=== PATIENT | female | born 1980 | race Caucasian/White ===

== ENCOUNTER 2017-11-28 10:06 | Outpatient (REF) | payer MEDICAID, SELFPAY ==
[2017-11-28 21:19] LABS: ALT 22 U/L (12-78); AST 18 U/L (15-37); Albumin 3.8 g/dL (3.4-5.0); Alkaline Phosphatase 56 U/L (46-116); BUN 13 mg/dL (7-18); Bilirubin, Total 0.2 mg/dL (0.2-1.0); CREATININE 0.73 mg/dL (0.55-1.02); Calcium 8.5 mg/dL (8.5-10.1); Chloride 106 mmol/L (98-107); Cholesterol 142 mg/dL (50-200); Glucose 93 mg/dL (70-100); HDL Cholesterol 39 mg/dL (40-60); LDL CHOLESTEROL 94 mg/dL (<100); Potassium 4.5 mmol/L (3.5-5.1); Sodium 141 mmol/L (136-145); Total Protein 7.1 g/dL (6.4-8.2); Triglyceride 57 mg/dL (30-150)
== END 2017-11-28 10:07 ==
LOC: NCHCN 10:06
PROVIDERS: PCP Family Medicine; Visit Provider Family Medicine
DX: E66.3 Overweight (principal); Z00.00 Encounter for general adult medical examination without abnormal findings
CPT/HCPCS: 80053; 80061; 83721

== ENCOUNTER 2017-12-09 18:11 | Outpatient (REF) | payer MEDICAID, SELFPAY ==
--- NOTE | 2017-12-09 16:30 | PAPFT_PTH ---
PATIENT: Mckenzie Ryan LOC: [facility] U#:[id number] AGE/SX: 37/F ROOM: RE12/09/[address]: Andi Mcdonnell : 1980 BED: DIS: 12/09/2017 SPEC #: [id number] RECD: 12/10/17 12:27 STATUS: JESSY GUAJARDO #: [id number] JONY: 12/09/17 16:[address]: Andi Mcdonnell DEPT: [facility] Cytology RECD BY: Herminia Zambrano Tissues: 1 - CX/ENDOCX FOR PAP SMEARS Procedures: PAP THIN PREP/[facility] Screening HPV DNA PROBE Comments: [id number]
== END 2017-12-09 18:31 ==
LOC: NCHCN 18:11
PROVIDERS: PCP Family Medicine; Visit Provider Family Medicine
DX: Z12.4 Encounter for screening for malignant neoplasm of cervix (principal); Z11.51 Encounter for screening for human papillomavirus (HPV)
CPT/HCPCS: 88142; 87624

== ENCOUNTER 2019-02-26 22:22 | Outpatient (REF) | payer BC, SELFPAY ==
[2019-02-26 21:08] LABS: Abs Immature Grans 0.01 k/cumm (0.0-0.09); Absolute Basophil Count 0.05 k/cumm (0.0-0.2); Absolute Eosinophil Count 0.09 k/cumm (0.0-0.7); Absolute Lymphocyte Count 2.26 k/cumm (1.2-3.4); Absolute Monocyte Count 0.55 k/cumm (0.11-0.7); Absolute Neutrophil Count 4.23 k/cumm (1.2-6.7); Basophils % 0.7; Eosinophils % 1.3; HCT 45.8 % (36.0-46.0); HGB 15.8 g/dL (12.0-15.5); Immature Grans % 0.1; Lymphocytes % 31.4; Mean Corp. HGB Concentration 34.5 g/dL (32.0-36.0); Mean Corpuscular Hemoglobin 31.2 pg (27.0-33.0); Mean Corpuscular Volume 90.3 fL (80-95); Mean Platelet Volume 10.3 fL (8.0-11.0); Monocytes % 7.6; Neutrophils % 58.9; Platelet Count 271 x1000/uL (130-400); RBC 5.07 m/cumm (4.00-5.20); RBC Distribution Width 12.8 % (11.7-14.6); White Blood Cell Count 7.19 k/cumm (4.4-10.8)
[2019-02-26 21:24] LABS: ALT 28 U/L (14-59); AST 14 U/L (15-37); Albumin 4.3 g/dL (3.4-5.0); Alkaline Phosphatase 46 U/L (46-116); Anion Gap 9.3 mmol/L (3-11); BUN 13 mg/dL (7-18); Bilirubin, Total 0.4 mg/dL (0.2-1.0); C-Reactive Protein 0.24 mg/dL (0.0-0.3); CO2 26.7 mmol/L (21.0-32.0); CREATININE 0.67 mg/dL (0.55-1.02); Calcium 9.1 mg/dL (8.5-10.1); Chloride 102 mmol/L (98-107); Glucose 81 mg/dL (74-106); Potassium 4.5 mmol/L (3.5-5.1); Sodium 138 mmol/L (136-145); TSH (W/Ref FT4) 1.05 uIU/mL (0.36-3.74); Total Protein 7.3 g/dL (6.4-8.2)
[2019-02-26 21:55] LABS: ESR 6 mm/hr (0-20)
== END 2019-02-26 22:42 ==
LOC: NCHCN 22:22
PROVIDERS: PCP Family Medicine; Visit Provider Family Medicine
DX: R63.4 Abnormal weight loss (principal)
CPT/HCPCS: 80053; 85652; 84443; 85025; 86140

== ENCOUNTER 2019-03-02 07:56 | Outpatient (REF) | payer BC, SELFPAY | END 2019-03-02 08:16 | LOC: NCHCN 07:56 | PROVIDERS: PCP Family Medicine; Visit Provider Family Medicine | DX: R63.4 Abnormal weight loss (principal) | CPT/HCPCS: 82272 ==

== ENCOUNTER 2019-03-19 09:00 | Outpatient (REF) | payer BC, SELFPAY ==
[2019-03-22 15:28] LABS: IgA 143 mg/dL (85-499); Tissue Transglutaminase IgA <1.2 U/mL (<4.0)
== END 2019-03-19 09:20 ==
LOC: NCHCN 09:00
PROVIDERS: PCP Family Medicine; Visit Provider Family Medicine
DX: R19.7 Diarrhea, unspecified (principal); R63.4 Abnormal weight loss; R11.2 Nausea with vomiting, unspecified
CPT/HCPCS: 82784; 83516

== ENCOUNTER 2019-05-18 16:24 | Outpatient (REF) | payer BC, SELFPAY ==
--- NOTE | 2019-05-18 14:52 | PAPFT_PTH ---
PATIENT: Mckenzie Ryan LOC: [facility] U#:[id number] AGE/SX: 38/F ROOM: RE05/18/[address]: Andi Mcdonnell : 1980 BED: DIS: 05/18/2019 SPEC #: [id number] RECD: 05/19/19 12:51 STATUS: JESSY REMaximino #: [id number] JONY: 05/18/19 14:[address]: Andi Mcdonnell DEPT: [facility] Cytology RECD BY: Herminia Zambrano Tissues: 1 - CX/ENDOCX FOR PAP SMEARS Procedures: PAP THIN PREP/[facility] Screening HPV DNA PROBE Comments: [id number]
== END 2019-05-18 16:44 ==
LOC: NCHCN 16:24
PROVIDERS: PCP Family Medicine; Visit Provider Family Medicine
DX: Z12.4 Encounter for screening for malignant neoplasm of cervix (principal); Z11.51 Encounter for screening for human papillomavirus (HPV)
CPT/HCPCS: 88142; 87624

== ENCOUNTER 2019-06-04 22:00 | Outpatient (REF) | payer BC, SELFPAY ==
[2019-08-06 09:43] LABS: Specimen Description Sputum
== END 2019-06-04 22:20 ==
LOC: LBN 22:00
PROVIDERS: PCP Family Medicine; Visit Provider Internal Medicine Pulmonary Disease
DX: R05 Cough (principal)
CPT/HCPCS: 87116; 87206; 87070; 87205

== ENCOUNTER 2019-08-03 00:38 | Outpatient (REF) | payer BC, SELFPAY ==
[2019-08-05 13:37] LABS: Chlamydia Result Negative (Negative); GC Result Negative (Negative)
== END 2019-08-03 00:58 ==
LOC: NCHCN 00:38
PROVIDERS: PCP Family Medicine; Visit Provider Nurse Practitioner Family
DX: R10.30 Lower abdominal pain, unspecified (principal); Z11.3 Encounter for screening for infections with a predominantly sexual mode of transmission
CPT/HCPCS: 87491; 87591

== ENCOUNTER 2020-05-22 18:36 | Outpatient (REF) | payer BC, SELFPAY ==
[2020-05-22 13:46] LABS: Abs Immature Grans 0.02 10^3/uL (0.0-0.06); Absolute Basophil Count 0.08 10^3/uL (0.0-0.2); Absolute Eosinophil Count 0.22 10^3/uL (0.0-0.7); Absolute Lymphocyte Count 2.31 10^3/uL (1.2-3.4); Absolute Monocyte Count 0.48 10^3/uL (0.1-0.8); Absolute Neutrophil Count 3.97 10^3/uL (1.2-6.7); Basophils % 1.1; Eosinophils % 3.1; HCT 43.8 % (36.0-46.0); HGB 15.2 g/dL (11.2-15.7); Immature Grans % 0.3; Lymphocytes % 32.6; MCH 31.9 pg (27.0-33.0); MCHC 34.7 % (32.0-36.0); MCV 91.8 fL (80-95); MPV 10.7 fL (8.0-11.0); Monocytes % 6.8; Neutrophils % 56.1; Nucleated RBC 0 %; Platelet Count 102 10^3/uL (130-400); RBC 4.77 10^6/uL (3.93-5.22); RDW 11.6 % (11.7-14.6); RDW-SD 39.4 fL; WBC 7.08 10^3/uL (4.4-10.8)
== END 2020-05-22 18:37 | disposition home or self-care (01) ==
LOC: NCHCN 18:36
PROVIDERS: PCP Family Medicine; Visit Provider Nurse Practitioner Community Health
DX: R10.9 Unspecified abdominal pain (principal)
CPT/HCPCS: 85025

== ENCOUNTER 2020-06-13 16:22 | Outpatient (REF) | payer BC, SELFPAY ==
[2020-06-13 15:19] LABS: Abs Immature Grans 0.01 10^3/uL (0.0-0.06); Absolute Basophil Count 0.08 10^3/uL (0.0-0.2); Absolute Eosinophil Count 0.24 10^3/uL (0.0-0.7); Absolute Lymphocyte Count 2.35 10^3/uL (1.2-3.4); Absolute Neutrophil Count 3.92 10^3/uL (1.2-6.7); Basophils % 1.1; Eosinophils % 3.4; HCT 43.8 % (36.0-46.0); Immature Grans % 0.1; Lymphocytes % 33.1; MCH 31.3 pg (27.0-33.0); MCHC 34.2 % (32.0-36.0); MCV 91.4 fL (80-95); MPV 11.2 fL (8.0-11.0); Neutrophils % 55.3; Nucleated RBC 0 %; Platelet Count 134 10^3/uL (130-400); RBC 4.79 10^6/uL (3.93-5.22); RDW 11.7 % (11.7-14.6); RDW-SD 39.7 fL
[2020-06-13 16:16] LABS: Folate 9.7 ng/mL (8.6-20.0); Vitamin B12 290 pg/mL (193-986)
== END 2020-06-13 16:23 | disposition home or self-care (01) ==
LOC: NCHCN 16:22
PROVIDERS: PCP Family Medicine; Visit Provider Family Medicine
DX: D69.6 Thrombocytopenia, unspecified (principal)
CPT/HCPCS: 82607; 82746; 85025

== ENCOUNTER 2020-07-18 17:45 | Outpatient (REF) | payer BC, SELFPAY ==
[2020-07-18 13:02] LABS: Abs Immature Grans 0.01 10^3/uL (0.0-0.06); Absolute Basophil Count 0.06 10^3/uL (0.0-0.2); Absolute Monocyte Count 0.39 10^3/uL (0.1-0.8); Absolute Neutrophil Count 4.02 10^3/uL (1.2-6.7); Basophils % 0.9; Eosinophils % 2.9; HCT 41.4 % (36.0-46.0); HGB 14.1 g/dL (11.2-15.7); Immature Grans % 0.1; MCH 30.9 pg (27.0-33.0); MCHC 34.1 % (32.0-36.0); MCV 90.8 fL (80-95); MPV 11.1 fL (8.0-11.0); Monocytes % 5.8; Neutrophils % 59.3; Nucleated RBC 0 %; RBC 4.56 10^6/uL (3.93-5.22); RDW 11.2 % (11.7-14.6); RDW-SD 37.8 fL; WBC 6.78 10^3/uL (4.4-10.8)
[2020-07-18 13:27] LABS: Diff Comment Diff Reviewed; Platelet Count 71 10^3/uL (130-400); RBC Morphology Normal
== END 2020-07-18 17:46 | disposition home or self-care (01) ==
LOC: NCHCN 17:45
PROVIDERS: PCP Family Medicine; Visit Provider Family Medicine
DX: D69.6 Thrombocytopenia, unspecified (principal)
CPT/HCPCS: 85025

== ENCOUNTER 2020-07-19 17:39 | Outpatient (REF) | payer BC, SELFPAY ==
[2020-07-19 21:51] LABS: Abs Immature Grans 0.02 10^3/uL (0.0-0.06); Absolute Basophil Count 0.08 10^3/uL (0.0-0.2); Absolute Eosinophil Count 0.29 10^3/uL (0.0-0.7); Absolute Lymphocyte Count 3.27 10^3/uL (1.2-3.4); Absolute Monocyte Count 0.59 10^3/uL (0.1-0.8); Absolute Neutrophil Count 6.49 10^3/uL (1.2-6.7); Basophils % 0.7; Eosinophils % 2.7; HCT 40.8 % (36.0-46.0); HGB 14.3 g/dL (11.2-15.7); Immature Grans % 0.2; Lymphocytes % 30.4; MCH 31.1 pg (27.0-33.0); MCV 88.7 fL (80-95); MPV 11.3 fL (8.0-11.0); Monocytes % 5.5; Neutrophils % 60.5; Nucleated RBC 0 %; RDW 11.4 % (11.7-14.6); RDW-SD 36.3 fL; WBC 10.74 10^3/uL (4.4-10.8)
[2020-07-19 22:30] LABS: Platelet Count 82 10^3/uL (130-400)
== END 2020-07-19 17:40 | disposition home or self-care (01) ==
LOC: NCHCN 17:39
PROVIDERS: PCP Family Medicine; Visit Provider Nurse Practitioner Family
DX: D69.6 Thrombocytopenia, unspecified (principal)
CPT/HCPCS: 85025

== ENCOUNTER 2020-07-21 17:30 | Outpatient (REF) | payer BC, SELFPAY ==
[2020-07-21 21:55] LABS: ALT 29 U/L (14-59); AST 15 U/L (15-37); Albumin 4.3 g/dL (3.4-5.0); Alkaline Phosphatase 48 U/L (46-116); Anion Gap 9.2 mmol/L (3-11); BUN 11 mg/dL (7-18); Bilirubin, Total 0.2 mg/dL (0.2-1.0); CO2 27.8 mmol/L (21.0-32.0); CREATININE 0.9 mg/dL (0.55-1.02); Calcium 9.2 mg/dL (8.5-10.1); Chloride 104 mmol/L (98-107); Glucose 119 mg/dL (74-106); Potassium 3.9 mmol/L (3.5-5.1); Sodium 141 mmol/L (136-145); Total Protein 7.4 g/dL (6.4-8.2)
[2020-07-23 18:08] LABS: Fibrinogen 305 mg/dl (171-384)
[2020-07-24 10:54] LABS: Hepatitis C Ab w Rflx HCV PCR Negative (Negative)
[2020-07-24 11:05] LABS: HIV-1/2 Ag & Ab Screen Negative (Negative)
== END 2020-07-21 17:31 | disposition home or self-care (01) ==
LOC: NCHCN 17:30
PROVIDERS: PCP Family Medicine; Visit Provider Nurse Practitioner Family
DX: D69.6 Thrombocytopenia, unspecified (principal); Z11.4 Encounter for screening for human immunodeficiency virus [HIV]; Z11.59 Encounter for screening for other viral diseases
CPT/HCPCS: 80053; 85384; 86803; 87389; 85730

== ENCOUNTER 2020-08-02 22:54 | Outpatient (REF) | payer BC, SELFPAY ==
[2020-08-02 22:20] LABS: HCT 39.9 % (36.0-46.0); HGB 13.7 g/dL (11.2-15.7); MCHC 34.3 % (32.0-36.0); MCV 90.3 fL (80-95); MPV 11.1 fL (8.0-11.0); Platelet Count 109 10^3/uL (130-400); RBC 4.42 10^6/uL (3.93-5.22); RDW 11.1 % (11.7-14.6); RDW-SD 37.1 fL; WBC 9.12 10^3/uL (4.4-10.8)
[2020-08-04 14:01] LABS: COVID-19 RT-PCR UVMMC Result Negative (Negative)
== END 2020-08-02 22:55 | disposition home or self-care (01) ==
LOC: NCHCN 22:54
PROVIDERS: PCP Family Medicine; Visit Provider Family Medicine
DX: D69.6 Thrombocytopenia, unspecified (principal); Z20.822 Contact with and (suspected) exposure to COVID-19
CPT/HCPCS: 85027; U0003

== ENCOUNTER 2020-08-29 16:32 | Outpatient (REF) | payer BC, SELFPAY ==
[2020-08-29 15:24] LABS: HCT 39.6 % (36.0-46.0); HGB 13.9 g/dL (11.2-15.7); MCHC 35.1 % (32.0-36.0); MCV 88.2 fL (80-95); Platelet Count 82 10^3/uL (130-400); RBC 4.49 10^6/uL (3.93-5.22); RDW 11.8 % (11.7-14.6); WBC 6.66 10^3/uL (4.4-10.8)
== END 2020-08-29 16:33 | disposition home or self-care (01) ==
LOC: LBN 16:32
PROVIDERS: PCP Family Medicine; Visit Provider Internal Medicine Hematology
DX: D69.6 Thrombocytopenia, unspecified (principal)
CPT/HCPCS: 85027

== ENCOUNTER 2020-09-14 09:28 | Outpatient (REF) | payer BC, SELFPAY ==
[2020-09-14 13:38] LABS: HCT 40.7 % (36.0-46.0); HGB 13.7 g/dL (11.2-15.7); MCHC 33.7 % (32.0-36.0); MCV 89.1 fL (80-95); MPV 10.6 fL (8.0-11.0); RBC 4.57 10^6/uL (3.93-5.22); RDW 11.9 % (11.7-14.6); RDW-SD 38.6 fL; WBC 7.88 10^3/uL (4.4-10.8)
[2020-09-14 13:40] LABS: Platelet Count 67 10^3/uL (130-400)
== END 2020-09-14 09:29 | disposition home or self-care (01) ==
LOC: NCHCN 09:28
PROVIDERS: PCP Family Medicine; Visit Provider Family Medicine
DX: D69.6 Thrombocytopenia, unspecified (principal)
CPT/HCPCS: 85027

== ENCOUNTER 2020-11-14 15:17 | Outpatient (REF) | payer BC, SELFPAY ==
[2020-11-14 20:38] LABS: Abs Immature Grans 0.02 10^3/uL (0.0-0.06); HGB 14.3 g/dL (11.2-15.7); Immature Grans % 0.2; Nucleated RBC 0 %; RDW-SD 39.6 fL
[2020-11-14 20:39] LABS: Absolute Basophil Count 0.05 10^3/uL (0.0-0.2); Absolute Eosinophil Count 0.15 10^3/uL (0.0-0.7); Absolute Lymphocyte Count 2.61 10^3/uL (1.2-3.4); Absolute Monocyte Count 0.46 10^3/uL (0.1-0.8); Basophils % 0.6; Eosinophils % 1.8; HCT 41.8 % (36.0-46.0); Lymphocytes % 32.2; MCH 31.2 pg (27.0-33.0); MCHC 34.2 % (32.0-36.0); MCV 91.1 fL (80-95); MPV 11.4 fL (8.0-11.0); Monocytes % 5.7; Neutrophils % 59.5; RBC 4.59 10^6/uL (3.93-5.22); RDW 11.8 % (11.7-14.6); WBC 8.11 10^3/uL (4.4-10.8)
[2020-11-14 20:57] LABS: Absolute Neutrophil Count 4.83 10^3/uL (1.2-6.7)
[2020-11-14 21:02] LABS: ALT 27 U/L (14-59); AST 18 U/L (15-37); Alkaline Phosphatase 42 U/L (46-116); Anion Gap 9.1 mmol/L (3-11); BUN 12 mg/dL (7-18); Bilirubin, Total 0.3 mg/dL (0.2-1.0); CO2 24.9 mmol/L (21.0-32.0); CREATININE 0.6 mg/dL (0.55-1.02); Calcium 9.1 mg/dL (8.5-10.1); Chloride 105 mmol/L (98-107); Glucose 100 mg/dL (74-106); Lipase 60 U/L (73-393); Potassium 3.8 mmol/L (3.5-5.1); Sodium 139 mmol/L (136-145); TSH (W/Ref FT4) 1.08 uIU/mL (0.36-3.74); Total Protein 6.9 g/dL (6.4-8.2)
[2020-11-14 21:59] LABS: Diff Comment PLT Morph Reviewed; Platelet Count 76 10^3/uL (130-400); RBC Morphology Normal
[2020-11-16 12:32] LABS: COVID-19 RT-PCR UVMMC Result Negative (Negative)
== END 2020-11-14 15:18 | disposition home or self-care (01) ==
LOC: NCHCN 15:17
PROVIDERS: PCP Family Medicine; Visit Provider Nurse Practitioner Family
DX: R19.7 Diarrhea, unspecified (principal); R11.0 Nausea; J06.9 Acute upper respiratory infection, unspecified; Z20.822 Contact with and (suspected) exposure to COVID-19
CPT/HCPCS: 80053; 83690; U0003; 84443; 85025

== ENCOUNTER 2020-12-21 17:39 | Outpatient (REF) | payer BC, SELFPAY ==
[2020-12-21 20:42] LABS: Abs Immature Grans 0.02 10^3/uL (0.0-0.06); Absolute Basophil Count 0.08 10^3/uL (0.0-0.2); Absolute Eosinophil Count 0.11 10^3/uL (0.0-0.7); Absolute Lymphocyte Count 2.83 10^3/uL (1.2-3.4); Absolute Monocyte Count 0.51 10^3/uL (0.1-0.8); Eosinophils % 1.3; HCT 43.4 % (36.0-46.0); HGB 14.8 g/dL (11.2-15.7); Immature Grans % 0.2; Lymphocytes % 34.3; MCH 30.6 pg (27.0-33.0); MCHC 34.1 % (32.0-36.0); MCV 89.9 fL (80-95); MPV 11.8 fL (8.0-11.0); Monocytes % 6.2; Nucleated RBC 0 %; Platelet Count 51 10^3/uL (130-400); RBC 4.83 10^6/uL (3.93-5.22); RDW 11.5 % (11.7-14.6); RDW-SD 37.4 fL; WBC 8.25 10^3/uL (4.4-10.8)
[2020-12-21 20:54] LABS: ALT 26 U/L (14-59); AST 17 U/L (15-37); Albumin 4.4 g/dL (3.4-5.0); Alkaline Phosphatase 45 U/L (46-116); Anion Gap 9.2 mmol/L (3-11); BUN 9 mg/dL (7-18); Bilirubin, Total 0.3 mg/dL (0.2-1.0); CO2 25.8 mmol/L (21.0-32.0); CREATININE 0.8 mg/dL (0.55-1.02); Calcium 9.3 mg/dL (8.5-10.1); Chloride 105 mmol/L (98-107); Glucose 83 mg/dL (74-106); Lipase 55 U/L (73-393); Potassium 3.8 mmol/L (3.5-5.1); Sodium 140 mmol/L (136-145); Total Protein 7.4 g/dL (6.4-8.2)
[2020-12-23 21:33] LABS: COVID-19 RT-PCR UVMMC Result Negative (Negative)
== END 2020-12-21 17:40 | disposition home or self-care (01) ==
LOC: NCHCN 17:39
PROVIDERS: PCP Family Medicine; Visit Provider Nurse Practitioner Family
DX: R10.30 Lower abdominal pain, unspecified (principal); Z20.822 Contact with and (suspected) exposure to COVID-19; J06.9 Acute upper respiratory infection, unspecified
CPT/HCPCS: 80053; 83690; U0003; 85025

== ENCOUNTER 2020-12-26 15:36 | Outpatient (REF) | payer BC, SELFPAY ==
[2020-12-26 21:45] LABS: HCT 43.6 % (36.0-46.0); MCH 31.1 pg (27.0-33.0); MCHC 34.4 % (32.0-36.0); MCV 90.3 fL (80-95); MPV 11.8 fL (8.0-11.0); Platelet Count 48 10^3/uL (130-400); RBC 4.83 10^6/uL (3.93-5.22); RDW 11.4 % (11.7-14.6); WBC 8.83 10^3/uL (4.4-10.8)
== END 2020-12-26 15:37 | disposition home or self-care (01) ==
LOC: NCHCN 15:36
PROVIDERS: PCP Family Medicine; Visit Provider Family Medicine
DX: D69.6 Thrombocytopenia, unspecified (principal)
CPT/HCPCS: 85027

== ENCOUNTER 2021-01-05 07:36 | Outpatient (REF) | payer BC, SELFPAY ==
[2021-01-04 21:02] LABS: Abs Immature Grans 0.06 10^3/uL (0.0-0.06); Absolute Basophil Count 0.03 10^3/uL (0.0-0.2); Basophils % 0.2; HCT 47.2 % (36.0-46.0); Immature Grans % 0.4; Lymphocytes % 10.8; MCH 31.1 pg (27.0-33.0); MCHC 33.9 % (32.0-36.0); MCV 91.7 fL (80-95); Monocytes % 0.8; Neutrophils % 87.8; Nucleated RBC 0 %; Platelet Count 286 10^3/uL (130-400); RBC 5.15 10^6/uL (3.93-5.22); RDW-SD 41.2 fL; WBC 15.62 10^3/uL (4.4-10.8)
[2021-01-04 21:18] LABS: Absolute Lymphocyte Count 1.69 10^3/uL (1.2-3.4); Absolute Monocyte Count 0.12 10^3/uL (0.1-0.8); Absolute Neutrophil Count 13.71 10^3/uL (1.2-6.7)
[2021-01-05 19:20] LABS: COVID-19 RT-PCR UVMMC Result Negative (Negative)
== END 2021-01-05 07:37 | disposition home or self-care (01) ==
LOC: NCHCN 07:36
PROVIDERS: Registered Nurse; PCP Family Medicine; Visit Provider Internal Medicine Hematology
DX: D69.6 Thrombocytopenia, unspecified (principal); Z20.822 Contact with and (suspected) exposure to COVID-19; J06.9 Acute upper respiratory infection, unspecified
CPT/HCPCS: U0003; 85025

== ENCOUNTER 2021-01-19 13:38 | Outpatient (REF) | payer BC, SELFPAY ==
[2021-01-19 14:10] LABS: Abs Immature Grans 0.11 10^3/uL (0.0-0.06); Absolute Basophil Count 0.08 10^3/uL (0.0-0.2); Absolute Eosinophil Count 0.17 10^3/uL (0.0-0.7); Absolute Lymphocyte Count 3.97 10^3/uL (1.2-3.4); Basophils % 0.5; HGB 14.9 g/dL (11.2-15.7); Immature Grans % 0.7; Lymphocytes % 23.7; MCH 31.7 pg (27.0-33.0); MCHC 33.9 % (32.0-36.0); MCV 93.6 fL (80-95); MPV 9.9 fL (8.0-11.0); Neutrophils % 69.1; Nucleated RBC 0 %; Platelet Count 168 10^3/uL (130-400); RDW 12.9 % (11.7-14.6); RDW-SD 44.4 fL; WBC 16.76 10^3/uL (4.4-10.8)
[2021-01-19 14:12] LABS: Absolute Monocyte Count 0.84 10^3/uL (0.1-0.8); Absolute Neutrophil Count 11.58 10^3/uL (1.2-6.7)
== END 2021-01-19 13:39 | disposition home or self-care (01) ==
LOC: LBN 13:38
PROVIDERS: PCP Family Medicine; Visit Provider Internal Medicine Hematology
DX: D69.6 Thrombocytopenia, unspecified (principal)
CPT/HCPCS: 85025

== ENCOUNTER 2021-01-29 16:18 | Outpatient (REF) | payer BC, SELFPAY ==
[2021-01-31 14:27] LABS: COVID-19 RT-PCR UVMMC Result Negative (Negative)
== END 2021-01-29 16:19 | disposition home or self-care (01) ==
LOC: NCHCN 16:18
PROVIDERS: PCP Family Medicine; Visit Provider Nurse Practitioner Family
DX: Z20.822 Contact with and (suspected) exposure to COVID-19 (principal); J06.9 Acute upper respiratory infection, unspecified
CPT/HCPCS: U0003

== ENCOUNTER 2021-02-02 14:21 | Outpatient (REF) | payer BC, SELFPAY ==
[2021-02-02 15:04] LABS: Absolute Basophil Count 0.05 10^3/uL (0.0-0.2); Absolute Lymphocyte Count 2.76 10^3/uL (1.2-3.4); Absolute Monocyte Count 0.72 10^3/uL (0.1-0.8); Absolute Neutrophil Count 12.53 10^3/uL (1.2-6.7); Basophils % 0.3; Eosinophils % 0.6; HCT 47.1 % (36.0-46.0); HGB 15.5 g/dL (11.2-15.7); Immature Grans % 0.6; MCH 31.1 pg (27.0-33.0); MCHC 32.9 % (32.0-36.0); MCV 94.6 fL (80-95); Monocytes % 4.4; Neutrophils % 77.1; Nucleated RBC 0 %; Platelet Count 178 10^3/uL (130-400); RBC 4.98 10^6/uL (3.93-5.22); RDW 13.6 % (11.7-14.6); RDW-SD 47.9 fL; WBC 16.25 10^3/uL (4.4-10.8)
== END 2021-02-02 14:22 | disposition home or self-care (01) ==
LOC: LBN 14:21
PROVIDERS: PCP Family Medicine; Visit Provider Internal Medicine Hematology
DX: D69.3 Immune thrombocytopenic purpura (principal)
CPT/HCPCS: 85025

== ENCOUNTER 2021-02-09 14:58 | Outpatient (REF) | payer BC, SELFPAY ==
[2021-02-09 17:36] LABS: Abs Immature Grans 0.14 10^3/uL (0.0-0.06); Absolute Eosinophil Count 0.09 10^3/uL (0.0-0.7); Absolute Lymphocyte Count 2.23 10^3/uL (1.2-3.4); Basophils % 0.4; Eosinophils % 0.5; HCT 47.3 % (36.0-46.0); HGB 15.7 g/dL (11.2-15.7); Immature Grans % 0.8; Lymphocytes % 13.1; MCH 31.7 pg (27.0-33.0); MCHC 33.2 % (32.0-36.0); MCV 95.4 fL (80-95); MPV 10.3 fL (8.0-11.0); Monocytes % 3.5; Neutrophils % 81.7; Nucleated RBC 0 %; Platelet Count 163 10^3/uL (130-400); RBC 4.96 10^6/uL (3.93-5.22); RDW 13.6 % (11.7-14.6); RDW-SD 47.8 fL; WBC 17.01 10^3/uL (4.4-10.8)
[2021-02-09 17:38] LABS: Absolute Basophil Count 0.07 10^3/uL (0.0-0.2)
== END 2021-02-09 14:59 | disposition home or self-care (01) ==
LOC: LBN 14:58
PROVIDERS: PCP Family Medicine; Visit Provider Internal Medicine Hematology
DX: D69.6 Thrombocytopenia, unspecified (principal)
CPT/HCPCS: 85025

== ENCOUNTER 2021-02-16 13:58 | Outpatient (REF) | payer BC, SELFPAY ==
[2021-02-16 20:24] LABS: Abs Immature Grans 0.12 10^3/uL (0.0-0.06); Absolute Basophil Count 0.08 10^3/uL (0.0-0.2); Absolute Eosinophil Count 0.08 10^3/uL (0.0-0.7); Basophils % 0.4; Eosinophils % 0.4; HCT 47.6 % (36.0-46.0); HGB 15.6 g/dL (11.2-15.7); Immature Grans % 0.6; Lymphocytes % 13.7; MCH 31.5 pg (27.0-33.0); MCHC 32.8 % (32.0-36.0); MPV 10.7 fL (8.0-11.0); Monocytes % 4.1; Neutrophils % 80.8; Nucleated RBC 0 %; Platelet Count 144 10^3/uL (130-400); RBC 4.96 10^6/uL (3.93-5.22); RDW 13.2 % (11.7-14.6); RDW-SD 47.3 fL; WBC 19.11 10^3/uL (4.4-10.8)
[2021-02-16 20:26] LABS: Absolute Lymphocyte Count 2.62 10^3/uL (1.2-3.4); Absolute Monocyte Count 0.78 10^3/uL (0.1-0.8); Absolute Neutrophil Count 15.44 10^3/uL (1.2-6.7)
== END 2021-02-16 13:59 | disposition home or self-care (01) ==
LOC: LBN 13:58
PROVIDERS: PCP Family Medicine; Visit Provider Internal Medicine Hematology
DX: D69.6 Thrombocytopenia, unspecified (principal)
CPT/HCPCS: 85025

== ENCOUNTER 2021-02-23 13:50 | Outpatient (REF) | payer BC, SELFPAY ==
[2021-02-23 21:26] LABS: Abs Immature Grans 0.11 10^3/uL (0.0-0.06); Absolute Eosinophil Count 0.05 10^3/uL (0.0-0.7); Basophils % 0.5; Eosinophils % 0.3; HCT 46.8 % (36.0-46.0); HGB 15.6 g/dL (11.2-15.7); Immature Grans % 0.6; Lymphocytes % 10.4; MCH 31.5 pg (27.0-33.0); MCHC 33.3 % (32.0-36.0); MCV 94.5 fL (80-95); MPV 10.2 fL (8.0-11.0); Monocytes % 2.8; Neutrophils % 85.4; Nucleated RBC 0 %; Platelet Count 124 10^3/uL (130-400); RBC 4.95 10^6/uL (3.93-5.22); RDW 12.8 % (11.7-14.6); RDW-SD 44.9 fL; WBC 17.34 10^3/uL (4.4-10.8)
[2021-02-23 21:27] LABS: Absolute Basophil Count 0.09 10^3/uL (0.0-0.2); Absolute Monocyte Count 0.49 10^3/uL (0.1-0.8); Absolute Neutrophil Count 14.81 10^3/uL (1.2-6.7)
[2021-02-23 21:51] LABS: C-Reactive Protein 0.14 mg/dL (0.0-0.3); TSH 1.17 uIU/mL (0.36-3.74)
[2021-02-26 15:05] LABS: IgA 119 mg/dL (85-499); Interpretation (See Note); Tissue Transglutaminase IgA <1.2 U/mL (<4.0)
== END 2021-02-23 13:51 | disposition home or self-care (01) ==
LOC: LBN 13:50
PROVIDERS: Internal Medicine Gastroenterology; PCP Family Medicine; Visit Provider Internal Medicine Hematology
DX: D69.3 Immune thrombocytopenic purpura (principal); R10.84 Generalized abdominal pain
CPT/HCPCS: 82784; 83516; 84443; 85025; 86140; 86480

== ENCOUNTER 2021-03-02 19:38 | Outpatient (REF) | payer BC, SELFPAY ==
[2021-03-02 20:05] LABS: Abs Immature Grans 0.05 10^3/uL (0.0-0.06); Absolute Basophil Count 0.06 10^3/uL (0.0-0.2); Absolute Eosinophil Count 0.01 10^3/uL (0.0-0.7); Absolute Monocyte Count 0.18 10^3/uL (0.1-0.8); Absolute Neutrophil Count 10.64 10^3/uL (1.2-6.7); Basophils % 0.5; Eosinophils % 0.1; HCT 46.9 % (36.0-46.0); HGB 15.7 g/dL (11.2-15.7); Immature Grans % 0.4; Lymphocytes % 10.6; MCH 31.8 pg (27.0-33.0); MCHC 33.5 % (32.0-36.0); MCV 95.1 fL (80-95); MPV 10.5 fL (8.0-11.0); Monocytes % 1.5; Neutrophils % 86.9; Nucleated RBC 0 %; Platelet Count 156 10^3/uL (130-400); RBC 4.93 10^6/uL (3.93-5.22); RDW 12.5 % (11.7-14.6); RDW-SD 44.3 fL; WBC 12.24 10^3/uL (4.4-10.8)
== END 2021-03-02 19:39 | disposition home or self-care (01) ==
LOC: LBN 19:38
PROVIDERS: PCP Family Medicine; Visit Provider Internal Medicine Hematology
DX: D69.6 Thrombocytopenia, unspecified (principal)
CPT/HCPCS: 85025

== ENCOUNTER 2021-03-09 14:48 | Outpatient (REF) | payer BC, SELFPAY ==
[2021-03-09 21:24] LABS: Abs Immature Grans 0.04 10^3/uL (0.0-0.06); Absolute Basophil Count 0.08 10^3/uL (0.0-0.2); Absolute Eosinophil Count 0.08 10^3/uL (0.0-0.7); Absolute Lymphocyte Count 1.79 10^3/uL (1.2-3.4); Absolute Monocyte Count 0.52 10^3/uL (0.1-0.8); Basophils % 0.7; Eosinophils % 0.7; HCT 47.4 % (36.0-46.0); Immature Grans % 0.3; MCHC 33.8 % (32.0-36.0); MCV 94.8 fL (80-95); MPV 10.8 fL (8.0-11.0); Monocytes % 4.4; Neutrophils % 78.9; Nucleated RBC 0 %; Platelet Count 103 10^3/uL (130-400); RDW 12.4 % (11.7-14.6); RDW-SD 43.6 fL; WBC 11.93 10^3/uL (4.4-10.8)
[2021-03-09 21:25] LABS: Absolute Neutrophil Count 9.41 10^3/uL (1.2-6.7)
== END 2021-03-09 14:49 | disposition home or self-care (01) ==
LOC: LBN 14:48
PROVIDERS: PCP Family Medicine; Visit Provider Internal Medicine Hematology
DX: D69.3 Immune thrombocytopenic purpura (principal)
CPT/HCPCS: 85025

== ENCOUNTER 2021-03-16 15:17 | Outpatient (REF) | payer BC, SELFPAY ==
[2021-03-16 20:48] LABS: Abs Immature Grans 0.05 10^3/uL (0.0-0.06); Absolute Basophil Count 0.08 10^3/uL (0.0-0.2); Absolute Eosinophil Count 0.01 10^3/uL (0.0-0.7); Absolute Lymphocyte Count 1.29 10^3/uL (1.2-3.4); Absolute Monocyte Count 0.34 10^3/uL (0.1-0.8); Absolute Neutrophil Count 11.22 10^3/uL (1.2-6.7); Basophils % 0.6; Eosinophils % 0.1; HCT 46.8 % (36.0-46.0); HGB 15.6 g/dL (11.2-15.7); Immature Grans % 0.4; Lymphocytes % 9.9; MCH 31.4 pg (27.0-33.0); MCHC 33.3 % (32.0-36.0); MCV 94.2 fL (80-95); MPV 11.3 fL (8.0-11.0); Monocytes % 2.6; Neutrophils % 86.4; Nucleated RBC 0 %; RBC 4.97 10^6/uL (3.93-5.22); RDW-SD 41.8 fL; WBC 12.99 10^3/uL (4.4-10.8)
[2021-03-16 22:48] LABS: Platelet Count 54 10^3/uL (130-400)
== END 2021-03-16 15:18 | disposition home or self-care (01) ==
LOC: LBN 15:17
PROVIDERS: PCP Family Medicine; Visit Provider Internal Medicine Hematology
DX: D69.3 Immune thrombocytopenic purpura (principal)
CPT/HCPCS: 85025

== ENCOUNTER 2021-03-19 15:12 | Outpatient (REF) | payer BC, SELFPAY ==
[2021-03-19 22:19] LABS: Abs Immature Grans 0.03 10^3/uL (0.0-0.06); Absolute Basophil Count 0.06 10^3/uL (0.0-0.2); Absolute Eosinophil Count 0.02 10^3/uL (0.0-0.7); Absolute Lymphocyte Count 1.68 10^3/uL (1.2-3.4); Absolute Monocyte Count 0.24 10^3/uL (0.1-0.8); Absolute Neutrophil Count 7.87 10^3/uL (1.2-6.7); Basophils % 0.6; Eosinophils % 0.2; HCT 45.5 % (36.0-46.0); HGB 15.4 g/dL (11.2-15.7); Immature Grans % 0.3; MCH 31.8 pg (27.0-33.0); MCHC 33.8 % (32.0-36.0); MCV 93.8 fL (80-95); Monocytes % 2.4; Neutrophils % 79.5; Nucleated RBC 0 %; Platelet Count 69 10^3/uL (130-400); RBC 4.85 10^6/uL (3.93-5.22); RDW 11.9 % (11.7-14.6); RDW-SD 41.3 fL
== END 2021-03-19 15:13 | disposition home or self-care (01) ==
LOC: LBN 15:12
PROVIDERS: PCP Family Medicine; Visit Provider Internal Medicine Hematology
DX: D69.3 Immune thrombocytopenic purpura (principal)
CPT/HCPCS: 85025

== ENCOUNTER 2021-03-26 13:34 | Outpatient (REF) | payer BC, SELFPAY ==
[2021-03-26 15:19] LABS: Abs Immature Grans 0.04 10^3/uL (0.0-0.06); Absolute Basophil Count 0.07 10^3/uL (0.0-0.2); Absolute Eosinophil Count 0.02 10^3/uL (0.0-0.7); Absolute Lymphocyte Count 1.56 10^3/uL (1.2-3.4); Absolute Monocyte Count 0.28 10^3/uL (0.1-0.8); Absolute Neutrophil Count 9.04 10^3/uL (1.2-6.7); Basophils % 0.6; Eosinophils % 0.2; HCT 46.9 % (36.0-46.0); HGB 15.8 g/dL (11.2-15.7); Immature Grans % 0.4; Lymphocytes % 14.2; MCH 31.8 pg (27.0-33.0); MCHC 33.7 % (32.0-36.0); MCV 94.4 fL (80-95); MPV 11.3 fL (8.0-11.0); Monocytes % 2.5; Neutrophils % 82.1; Nucleated RBC 0 %; Platelet Count 130 10^3/uL (130-400); RBC 4.97 10^6/uL (3.93-5.22); RDW 11.9 % (11.7-14.6); RDW-SD 41.5 fL; WBC 11.01 10^3/uL (4.4-10.8)
== END 2021-03-26 13:35 | disposition home or self-care (01) ==
LOC: LBN 13:34
PROVIDERS: PCP Family Medicine; Visit Provider Internal Medicine Hematology
DX: D69.3 Immune thrombocytopenic purpura (principal)
CPT/HCPCS: 85025

== ENCOUNTER 2021-04-02 15:07 | Outpatient (REF) | payer BC, SELFPAY ==
[2021-04-02 21:06] LABS: Abs Immature Grans 0.06 10^3/uL (0.0-0.06); Absolute Eosinophil Count 0.01 10^3/uL (0.0-0.7); Absolute Monocyte Count 0.14 10^3/uL (0.1-0.8); Absolute Neutrophil Count 11.39 10^3/uL (1.2-6.7); Basophils % 0.5; Eosinophils % 0.1; HCT 45.9 % (36.0-46.0); HGB 15.5 g/dL (11.2-15.7); Immature Grans % 0.5; Lymphocytes % 9.3; MCH 31.8 pg (27.0-33.0); MCHC 33.8 % (32.0-36.0); MCV 94.3 fL (80-95); MPV 10.8 fL (8.0-11.0); Monocytes % 1.1; Neutrophils % 88.5; Nucleated RBC 0 %; Platelet Count 93 10^3/uL (130-400); RBC 4.87 10^6/uL (3.93-5.22); RDW 11.9 % (11.7-14.6); RDW-SD 41.1 fL; WBC 12.87 10^3/uL (4.4-10.8)
[2021-04-02 21:08] LABS: Absolute Basophil Count 0.06 10^3/uL (0.0-0.2)
== END 2021-04-02 15:08 | disposition home or self-care (01) ==
LOC: LBN 15:07
PROVIDERS: PCP Family Medicine; Visit Provider Internal Medicine Hematology
DX: D69.3 Immune thrombocytopenic purpura (principal)
CPT/HCPCS: 85025

== ENCOUNTER 2021-04-10 15:17 | Outpatient (REF) | payer BC, SELFPAY ==
[2021-04-10 16:51] LABS: Abs Immature Grans 0.04 10^3/uL (0.0-0.06); Absolute Basophil Count 0.07 10^3/uL (0.0-0.2); Absolute Eosinophil Count 0.11 10^3/uL (0.0-0.7); Absolute Lymphocyte Count 2.93 10^3/uL (1.2-3.4); Absolute Monocyte Count 0.73 10^3/uL (0.1-0.8); Absolute Neutrophil Count 7.03 10^3/uL (1.2-6.7); Basophils % 0.6; HCT 44.1 % (36.0-46.0); Immature Grans % 0.4; Lymphocytes % 26.9; MCH 32.3 pg (27.0-33.0); MPV 11.3 fL (8.0-11.0); Monocytes % 6.7; Neutrophils % 64.4; Nucleated RBC 0 %; RBC 4.64 10^6/uL (3.93-5.22); RDW 11.9 % (11.7-14.6); RDW-SD 41.9 fL; WBC 10.91 10^3/uL (4.4-10.8)
[2021-04-10 17:07] LABS: Platelet Count 92 10^3/uL (130-400)
== END 2021-04-10 15:18 | disposition home or self-care (01) ==
LOC: LBN 15:17
PROVIDERS: PCP Family Medicine; Visit Provider Internal Medicine
DX: D69.3 Immune thrombocytopenic purpura (principal)
CPT/HCPCS: 85025

== ENCOUNTER 2021-04-17 11:29 | Outpatient (REF) | payer BC, SELFPAY ==
[2021-04-17 15:26] LABS: Lymphocytes % 14.2; Nucleated RBC 0 %; RDW 11.9 % (11.7-14.6)
[2021-04-17 15:28] LABS: Abs Immature Grans 0.06 10^3/uL (0.0-0.06); Absolute Lymphocyte Count 2.15 10^3/uL (1.2-3.4); Absolute Monocyte Count 0.76 10^3/uL (0.1-0.8); Basophils % 0.7; Eosinophils % 1.1; HCT 45.2 % (36.0-46.0); HGB 15.2 g/dL (11.2-15.7); Immature Grans % 0.4; MCHC 33.6 % (32.0-36.0); MCV 95.2 fL (80-95); Neutrophils % 78.6; RBC 4.75 10^6/uL (3.93-5.22)
[2021-04-17 15:49] LABS: Absolute Eosinophil Count 0.17 10^3/uL (0.0-0.7)
[2021-04-17 16:31] LABS: Diff Comment PLT Morph Reviewed; Platelet Count 88 10^3/uL (130-400); RBC Morphology Normal
[2021-04-17 18:54] LABS: WBC 15.13 10^3/uL (4.4-10.8)
== END 2021-04-17 11:30 | disposition home or self-care (01) ==
LOC: LBN 11:29
PROVIDERS: PCP Family Medicine; Visit Provider Internal Medicine
DX: D69.3 Immune thrombocytopenic purpura (principal)
CPT/HCPCS: 85025

== ENCOUNTER 2021-04-24 11:31 | Outpatient (REF) | payer BC, SELFPAY ==
[2021-04-24 16:05] LABS: Abs Immature Grans 0.03 10^3/uL (0.0-0.06); Absolute Basophil Count 0.07 10^3/uL (0.0-0.2); Absolute Eosinophil Count 0.12 10^3/uL (0.0-0.7); Absolute Lymphocyte Count 2.91 10^3/uL (1.2-3.4); Absolute Monocyte Count 0.64 10^3/uL (0.1-0.8); Absolute Neutrophil Count 6.41 10^3/uL (1.2-6.7); Basophils % 0.7; Eosinophils % 1.2; HCT 46.2 % (36.0-46.0); HGB 15.3 g/dL (11.2-15.7); Immature Grans % 0.3; Lymphocytes % 28.6; MCH 31.1 pg (27.0-33.0); MCHC 33.1 % (32.0-36.0); MCV 93.9 fL (80-95); MPV 10.7 fL (8.0-11.0); Monocytes % 6.3; Neutrophils % 62.9; Nucleated RBC 0 %; Platelet Count 110 10^3/uL (130-400); RBC 4.92 10^6/uL (3.93-5.22); RDW 12.2 % (11.7-14.6); RDW-SD 42.5 fL; WBC 10.18 10^3/uL (4.4-10.8)
== END 2021-04-24 11:32 | disposition home or self-care (01) ==
LOC: LBN 11:31
PROVIDERS: PCP Family Medicine; Visit Provider Internal Medicine
DX: D69.3 Immune thrombocytopenic purpura (principal)
CPT/HCPCS: 85025

== ENCOUNTER 2021-05-01 15:19 | Outpatient (REF) | payer BC, SELFPAY ==
[2021-05-01 15:54] LABS: Abs Immature Grans 0.06 10^3/uL (0.0-0.06); Absolute Basophil Count 0.08 10^3/uL (0.0-0.2); Absolute Eosinophil Count 0.13 10^3/uL (0.0-0.7); Absolute Monocyte Count 0.68 10^3/uL (0.1-0.8); Absolute Neutrophil Count 7.74 10^3/uL (1.2-6.7); Basophils % 0.7; Eosinophils % 1.2; HCT 44.7 % (36.0-46.0); HGB 15.2 g/dL (11.2-15.7); Immature Grans % 0.6; Lymphocytes % 19.5; MCH 31.7 pg (27.0-33.0); MCV 93.3 fL (80-95); MPV 11.2 fL (8.0-11.0); Monocytes % 6.3; Neutrophils % 71.7; Nucleated RBC 0 %; Platelet Count 90 10^3/uL (130-400); RBC 4.79 10^6/uL (3.93-5.22); RDW-SD 41.8 fL; WBC 10.79 10^3/uL (4.4-10.8)
== END 2021-05-01 15:20 | disposition home or self-care (01) ==
LOC: NCHCN 15:19
PROVIDERS: PCP Family Medicine; Visit Provider Internal Medicine
DX: D69.3 Immune thrombocytopenic purpura (principal)
CPT/HCPCS: 85025

== ENCOUNTER 2021-05-08 16:14 | Outpatient (REF) | payer BC, SELFPAY ==
[2021-05-08 15:22] LABS: Abs Immature Grans 0.04 10^3/uL (0.0-0.06); Absolute Basophil Count 0.07 10^3/uL (0.0-0.2); Absolute Eosinophil Count 0.08 10^3/uL (0.0-0.7); Absolute Lymphocyte Count 1.62 10^3/uL (1.2-3.4); Absolute Monocyte Count 0.52 10^3/uL (0.1-0.8); Absolute Neutrophil Count 7.83 10^3/uL (1.2-6.7); Basophils % 0.7; Eosinophils % 0.8; HCT 46.6 % (36.0-46.0); HGB 15.6 g/dL (11.2-15.7); Immature Grans % 0.4; Lymphocytes % 15.9; MCH 31.6 pg (27.0-33.0); MCHC 33.5 % (32.0-36.0); MCV 94.5 fL (80-95); MPV 11.3 fL (8.0-11.0); Monocytes % 5.1; Neutrophils % 77.1; Nucleated RBC 0 %; Platelet Count 97 10^3/uL (130-400); RBC 4.93 10^6/uL (3.93-5.22); RDW 12.3 % (11.7-14.6); RDW-SD 42.9 fL; WBC 10.16 10^3/uL (4.4-10.8)
== END 2021-05-08 16:15 | disposition home or self-care (01) ==
LOC: LBN 16:14
PROVIDERS: PCP Family Medicine; Visit Provider Internal Medicine
DX: D69.3 Immune thrombocytopenic purpura (principal)
CPT/HCPCS: 85025

== ENCOUNTER 2021-05-10 15:23 | Outpatient (REF) | payer BC, SELFPAY ==
[2021-05-14 13:53] LABS: Helicobacter pylori Ag, Feces Negative (Negative)
== END 2021-05-10 15:24 | disposition home or self-care (01) ==
LOC: NCHCN 15:23
PROVIDERS: PCP Family Medicine; Visit Provider Internal Medicine
DX: D69.3 Immune thrombocytopenic purpura (principal)
CPT/HCPCS: 87338

== ENCOUNTER 2021-05-15 15:29 | Outpatient (REF) | payer BC, SELFPAY ==
[2021-05-15 14:36] LABS: Abs Immature Grans 0.04 10^3/uL (0.0-0.06); Absolute Basophil Count 0.08 10^3/uL (0.0-0.2); Absolute Lymphocyte Count 1.87 10^3/uL (1.2-3.4); Absolute Monocyte Count 0.52 10^3/uL (0.1-0.8); Absolute Neutrophil Count 5.38 10^3/uL (1.2-6.7); Eosinophils % 1.3; HCT 45.5 % (36.0-46.0); HGB 15.2 g/dL (11.2-15.7); Immature Grans % 0.5; Lymphocytes % 23.4; MCH 31.7 pg (27.0-33.0); MCHC 33.4 % (32.0-36.0); MPV 10.8 fL (8.0-11.0); Monocytes % 6.5; Neutrophils % 67.3; Nucleated RBC 0 %; RBC 4.79 10^6/uL (3.93-5.22); RDW 12.1 % (11.7-14.6); RDW-SD 42.5 fL; WBC 7.99 10^3/uL (4.4-10.8)
[2021-05-15 15:06] LABS: Platelet Count 97 10^3/uL (130-400)
== END 2021-05-15 15:30 | disposition home or self-care (01) ==
LOC: LBN 15:29
PROVIDERS: PCP Family Medicine; Visit Provider Internal Medicine
DX: D69.3 Immune thrombocytopenic purpura (principal)
CPT/HCPCS: 85025

== ENCOUNTER 2021-05-22 13:55 | Outpatient (REF) | payer BC, SELFPAY ==
[2021-05-22 15:40] LABS: Abs Immature Grans 0.02 10^3/uL (0.0-0.06); Absolute Basophil Count 0.09 10^3/uL (0.0-0.2); Absolute Lymphocyte Count 2.49 10^3/uL (1.2-3.4); Absolute Monocyte Count 0.59 10^3/uL (0.1-0.8); Absolute Neutrophil Count 4.74 10^3/uL (1.2-6.7); Basophils % 1.1; Eosinophils % 1.2; HCT 46.3 % (36.0-46.0); HGB 15.5 g/dL (11.2-15.7); Immature Grans % 0.2; MCH 31.6 pg (27.0-33.0); MCHC 33.5 % (32.0-36.0); MCV 94.3 fL (80-95); MPV 11.1 fL (8.0-11.0); Monocytes % 7.3; Neutrophils % 59.2; Nucleated RBC 0 %; Platelet Count 95 10^3/uL (130-400); RBC 4.91 10^6/uL (3.93-5.22); RDW 11.9 % (11.7-14.6); RDW-SD 41.7 fL; WBC 8.03 10^3/uL (4.4-10.8)
[2021-05-22 17:09] LABS: Diff Comment PLT Morph Reviewed
== END 2021-05-22 13:56 | disposition home or self-care (01) ==
LOC: LBN 13:55
PROVIDERS: PCP Family Medicine; Referring Provider Family Medicine; Visit Provider Internal Medicine
DX: D69.3 Immune thrombocytopenic purpura (principal)
CPT/HCPCS: 85025

== ENCOUNTER 2021-05-29 17:23 | Outpatient (REF) | payer BC, SELFPAY ==
[2021-05-29 16:48] LABS: Abs Immature Grans 0.02 10^3/uL (0.0-0.06); Absolute Basophil Count 0.08 10^3/uL (0.0-0.2); Absolute Eosinophil Count 0.11 10^3/uL (0.0-0.7); Absolute Lymphocyte Count 1.99 10^3/uL (1.2-3.4); Absolute Monocyte Count 0.58 10^3/uL (0.1-0.8); Eosinophils % 1.3; HCT 44.7 % (36.0-46.0); HGB 14.9 g/dL (11.2-15.7); Immature Grans % 0.2; Lymphocytes % 23.7; MCH 31.5 pg (27.0-33.0); MCHC 33.3 % (32.0-36.0); MCV 94.5 fL (80-95); MPV 11.3 fL (8.0-11.0); Monocytes % 6.9; Neutrophils % 66.9; Nucleated RBC 0 %; Platelet Count 87 10^3/uL (130-400); RBC 4.73 10^6/uL (3.93-5.22); RDW-SD 42.3 fL; WBC 8.38 10^3/uL (4.4-10.8)
== END 2021-05-29 17:24 | disposition home or self-care (01) ==
LOC: LBN 17:23
PROVIDERS: PCP Family Medicine; Visit Provider Internal Medicine
DX: D69.3 Immune thrombocytopenic purpura (principal)
CPT/HCPCS: 85025

== ENCOUNTER 2021-06-05 18:09 | Outpatient (REF) | payer BC, SELFPAY ==
[2021-06-05 17:10] LABS: Abs Immature Grans 0.02 10^3/uL (0.0-0.06); Absolute Basophil Count 0.06 10^3/uL (0.0-0.2); Absolute Eosinophil Count 0.11 10^3/uL (0.0-0.7); Absolute Lymphocyte Count 2.15 10^3/uL (1.2-3.4); Absolute Monocyte Count 0.52 10^3/uL (0.1-0.8); Absolute Neutrophil Count 4.14 10^3/uL (1.2-6.7); Basophils % 0.9; Eosinophils % 1.6; HCT 44.8 % (36.0-46.0); HGB 14.7 g/dL (11.2-15.7); Immature Grans % 0.3; Lymphocytes % 30.7; MCH 30.8 pg (27.0-33.0); MCHC 32.8 % (32.0-36.0); MCV 93.9 fL (80-95); MPV 11.9 fL (8.0-11.0); Monocytes % 7.4; Neutrophils % 59.1; Nucleated RBC 0 %; Platelet Count 93 10^3/uL (130-400); RBC 4.77 10^6/uL (3.93-5.22); RDW 12.1 % (11.7-14.6); RDW-SD 42.4 fL
[2021-06-05 18:58] LABS: Diff Comment PLT Morph Reviewed; RBC Morphology Normal
== END 2021-06-05 18:10 | disposition home or self-care (01) ==
LOC: LBN 18:09
PROVIDERS: PCP Family Medicine; Referring Provider Family Medicine; Visit Provider Internal Medicine
DX: D69.3 Immune thrombocytopenic purpura (principal)
CPT/HCPCS: 85025

== ENCOUNTER 2021-06-12 16:06 | Outpatient (REF) | payer BC, SELFPAY ==
[2021-06-12 14:58] LABS: HGB 14.6 g/dL (11.2-15.7); Nucleated RBC 0 %
[2021-06-12 15:52] LABS: Abs Immature Grans 0.02 10^3/uL (0.0-0.06); Absolute Basophil Count 0.07 10^3/uL (0.0-0.2); Absolute Eosinophil Count 0.12 10^3/uL (0.0-0.7); Absolute Lymphocyte Count 1.95 10^3/uL (1.2-3.4); Absolute Monocyte Count 0.46 10^3/uL (0.1-0.8); Absolute Neutrophil Count 3.95 10^3/uL (1.2-6.7); Basophils % 1.1; Eosinophils % 1.8; HCT 42.8 % (36.0-46.0); Immature Grans % 0.3; Lymphocytes % 29.7; MCH 31.7 pg (27.0-33.0); MCHC 34.1 % (32.0-36.0); MPV 11.5 fL (8.0-11.0); Neutrophils % 60.1; Platelet Count 73 10^3/uL (130-400); RDW 11.8 % (11.7-14.6); RDW-SD 40.1 fL; WBC 6.57 10^3/uL (4.4-10.8)
== END 2021-06-12 16:07 | disposition home or self-care (01) ==
LOC: LBN 16:06
PROVIDERS: PCP Family Medicine; Visit Provider Internal Medicine
DX: D69.3 Immune thrombocytopenic purpura (principal)
CPT/HCPCS: 85025

== ENCOUNTER 2021-06-19 20:01 | Outpatient (REF) | payer BC, SELFPAY ==
[2021-06-19 14:17] LABS: Abs Immature Grans 0.01 10^3/uL (0.0-0.06); Absolute Basophil Count 0.08 10^3/uL (0.0-0.2); Absolute Eosinophil Count 0.09 10^3/uL (0.0-0.7); Absolute Lymphocyte Count 2.11 10^3/uL (1.2-3.4); Absolute Monocyte Count 0.44 10^3/uL (0.1-0.8); Absolute Neutrophil Count 3.84 10^3/uL (1.2-6.7); Basophils % 1.2; Eosinophils % 1.4; HCT 41.4 % (36.0-46.0); HGB 14.1 g/dL (11.2-15.7); Immature Grans % 0.2; Lymphocytes % 32.1; MCH 31.2 pg (27.0-33.0); MCHC 34.1 % (32.0-36.0); MCV 91.6 fL (80-95); MPV 11.7 fL (8.0-11.0); Monocytes % 6.7; Neutrophils % 58.4; Nucleated RBC 0 %; RBC 4.52 10^6/uL (3.93-5.22); RDW 11.6 % (11.7-14.6); RDW-SD 39.1 fL; WBC 6.57 10^3/uL (4.4-10.8)
[2021-06-19 14:29] LABS: Diff Comment Diff Reviewed; Platelet Count 52 10^3/uL (130-400); RBC Morphology Normal
== END 2021-06-19 20:02 | disposition home or self-care (01) ==
LOC: LBN 20:01
PROVIDERS: PCP Family Medicine; Visit Provider Internal Medicine
DX: D69.3 Immune thrombocytopenic purpura (principal)
CPT/HCPCS: 85025

== ENCOUNTER 2021-06-26 16:20 | Outpatient (REF) | payer BC, SELFPAY ==
[2021-06-26 15:05] LABS: Abs Immature Grans 0.02 10^3/uL (0.0-0.06); Absolute Basophil Count 0.07 10^3/uL (0.0-0.2); Absolute Eosinophil Count 0.14 10^3/uL (0.0-0.7); Absolute Monocyte Count 0.61 10^3/uL (0.1-0.8); Absolute Neutrophil Count 3.94 10^3/uL (1.2-6.7); Basophils % 0.9; Eosinophils % 1.9; HCT 41.1 % (36.0-46.0); Immature Grans % 0.3; Lymphocytes % 35.2; MCH 31.1 pg (27.0-33.0); MCHC 34.1 % (32.0-36.0); MCV 91.3 fL (80-95); MPV 10.9 fL (8.0-11.0); Monocytes % 8.3; Neutrophils % 53.4; Nucleated RBC 0 %; Platelet Count 75 10^3/uL (130-400); RDW 11.5 % (11.7-14.6); RDW-SD 38.7 fL; WBC 7.38 10^3/uL (4.4-10.8)
== END 2021-06-26 16:21 | disposition home or self-care (01) ==
LOC: NCHCN 16:20
PROVIDERS: PCP Family Medicine; Visit Provider Internal Medicine
DX: D69.3 Immune thrombocytopenic purpura (principal)
CPT/HCPCS: 85025

== ENCOUNTER 2021-07-03 10:04 | Outpatient (REF) | payer BC, SELFPAY ==
[2021-07-03 16:53] LABS: Abs Immature Grans 0.01 10^3/uL (0.0-0.06); Absolute Basophil Count 0.07 10^3/uL (0.0-0.2); Absolute Eosinophil Count 0.17 10^3/uL (0.0-0.7); Absolute Monocyte Count 0.52 10^3/uL (0.1-0.8); Absolute Neutrophil Count 3.45 10^3/uL (1.2-6.7); Eosinophils % 2.4; HCT 41.7 % (36.0-46.0); Immature Grans % 0.1; Lymphocytes % 39.9; MCH 31.3 pg (27.0-33.0); MCHC 33.6 % (32.0-36.0); MCV 93.3 fL (80-95); MPV 10.8 fL (8.0-11.0); Monocytes % 7.4; Neutrophils % 49.2; Nucleated RBC 0 %; RBC 4.47 10^6/uL (3.93-5.22); RDW 11.6 % (11.7-14.6); RDW-SD 39.9 fL; WBC 7.02 10^3/uL (4.4-10.8)
[2021-07-03 18:07] LABS: Platelet Count 87 10^3/uL (130-400); RBC Morphology Normal
[2021-07-03 18:08] LABS: Diff Comment PLT Morph Reviewed
== END 2021-07-03 10:05 | disposition home or self-care (01) ==
LOC: LBN 10:04
PROVIDERS: PCP Family Medicine; Visit Provider Internal Medicine
DX: D69.3 Immune thrombocytopenic purpura (principal)
CPT/HCPCS: 85025

== ENCOUNTER 2021-07-09 18:45 | Outpatient (REF) | payer BC, SELFPAY ==
[2021-07-09 16:20] LABS: Abs Immature Grans 0.01 10^3/uL (0.0-0.06); Absolute Basophil Count 0.06 10^3/uL (0.0-0.2); Absolute Eosinophil Count 0.16 10^3/uL (0.0-0.7); Absolute Lymphocyte Count 2.32 10^3/uL (1.2-3.4); Absolute Monocyte Count 0.49 10^3/uL (0.1-0.8); Absolute Neutrophil Count 3.24 10^3/uL (1.2-6.7); Eosinophils % 2.5; HCT 40.2 % (36.0-46.0); HGB 13.4 g/dL (11.2-15.7); Immature Grans % 0.2; Lymphocytes % 36.9; MCH 30.7 pg (27.0-33.0); MCHC 33.3 % (32.0-36.0); MCV 92.2 fL (80-95); MPV 11.2 fL (8.0-11.0); Monocytes % 7.8; Neutrophils % 51.6; Nucleated RBC 0 %; RBC 4.36 10^6/uL (3.93-5.22); RDW 11.5 % (11.7-14.6); RDW-SD 39.4 fL; WBC 6.28 10^3/uL (4.4-10.8)
[2021-07-09 16:23] LABS: Platelet Count 51 10^3/uL (130-400)
== END 2021-07-09 18:46 | disposition home or self-care (01) ==
LOC: LBN 18:45
PROVIDERS: PCP Family Medicine; Visit Provider Internal Medicine
DX: D69.3 Immune thrombocytopenic purpura (principal)
CPT/HCPCS: 85025

== ENCOUNTER 2021-07-16 20:06 | Outpatient (REF) | payer BC, SELFPAY ==
[2021-07-16 22:16] LABS: Abs Immature Grans 0.04 10^3/uL (0.0-0.06); Absolute Basophil Count 0.05 10^3/uL (0.0-0.2); Absolute Eosinophil Count 0.05 10^3/uL (0.0-0.7); Absolute Lymphocyte Count 0.72 10^3/uL (1.2-3.4); Absolute Monocyte Count 0.57 10^3/uL (0.1-0.8); Absolute Neutrophil Count 8.13 10^3/uL (1.2-6.7); Basophils % 0.5; Eosinophils % 0.5; HCT 41.3 % (36.0-46.0); HGB 13.9 g/dL (11.2-15.7); Immature Grans % 0.4; Lymphocytes % 7.5; MCHC 33.7 % (32.0-36.0); MPV 11.6 fL (8.0-11.0); Neutrophils % 85.1; Nucleated RBC 0 %; RBC 4.49 10^6/uL (3.93-5.22); RDW 11.6 % (11.7-14.6); RDW-SD 39.2 fL; WBC 9.56 10^3/uL (4.4-10.8)
[2021-07-16 22:18] LABS: Platelet Count 33 10^3/uL (130-400)
== END 2021-07-16 20:07 | disposition home or self-care (01) ==
LOC: LBN 20:06
PROVIDERS: PCP Family Medicine; Visit Provider Internal Medicine
DX: D69.3 Immune thrombocytopenic purpura (principal)
CPT/HCPCS: 85025

== ENCOUNTER 2021-07-20 22:48 | Outpatient (REF) | payer BC, SELFPAY ==
[2021-07-20 21:03] LABS: Abs Immature Grans 0.06 10^3/uL (0.0-0.06); Absolute Basophil Count 0.06 10^3/uL (0.0-0.2); Absolute Monocyte Count 0.76 10^3/uL (0.1-0.8); Basophils % 0.5; Eosinophils % 1.1; HCT 43.9 % (36.0-46.0); HGB 14.3 g/dL (11.2-15.7); Immature Grans % 0.5; Lymphocytes % 21.3; MCH 30.9 pg (27.0-33.0); MCHC 32.6 % (32.0-36.0); MCV 94.8 fL (80-95); MPV 10.9 fL (8.0-11.0); Monocytes % 6.2; Neutrophils % 70.4; RBC 4.63 10^6/uL (3.93-5.22); RDW 11.9 % (11.7-14.6); RDW-SD 41.5 fL; WBC 12.23 10^3/uL (4.4-10.8)
[2021-07-20 21:07] LABS: Absolute Eosinophil Count 0.13 10^3/uL (0.0-0.7); Absolute Neutrophil Count 8.61 10^3/uL (1.2-6.7)
[2021-07-20 21:08] LABS: Platelet Count 133 10^3/uL (130-400)
== END 2021-07-20 22:49 | disposition home or self-care (01) ==
LOC: NCHCN 22:48
PROVIDERS: PCP Family Medicine; Visit Provider Internal Medicine
DX: D69.3 Immune thrombocytopenic purpura (principal)
CPT/HCPCS: 85025

== ENCOUNTER 2021-07-24 10:11 | Outpatient (REF) | payer BC, SELFPAY ==
[2021-07-24 17:33] LABS: Abs Immature Grans 0.05 10^3/uL (0.0-0.06); Absolute Basophil Count 0.05 10^3/uL (0.0-0.2); Absolute Eosinophil Count 0.19 10^3/uL (0.0-0.7); Absolute Lymphocyte Count 2.83 10^3/uL (1.2-3.4); Absolute Neutrophil Count 5.23 10^3/uL (1.2-6.7); Basophils % 0.6; Eosinophils % 2.1; HCT 42.7 % (36.0-46.0); HGB 14.3 g/dL (11.2-15.7); Immature Grans % 0.6; Lymphocytes % 31.6; MCH 30.8 pg (27.0-33.0); MCHC 33.5 % (32.0-36.0); MCV 91.8 fL (80-95); Monocytes % 6.7; Neutrophils % 58.4; RBC 4.65 10^6/uL (3.93-5.22); RDW-SD 40.3 fL; WBC 8.95 10^3/uL (4.4-10.8)
[2021-07-24 17:35] LABS: Platelet Count 246 10^3/uL (130-400)
== END 2021-07-24 10:12 | disposition home or self-care (01) ==
LOC: LBN 10:11
PROVIDERS: PCP Family Medicine; Visit Provider Internal Medicine
DX: D69.3 Immune thrombocytopenic purpura (principal)
CPT/HCPCS: 85025

== ENCOUNTER 2021-07-31 16:51 | Outpatient (REF) | payer BC, SELFPAY ==
[2021-07-31 17:18] LABS: Abs Immature Grans 0.02 10^3/uL (0.0-0.06); Absolute Basophil Count 0.08 10^3/uL (0.0-0.2); Absolute Lymphocyte Count 2.68 10^3/uL (1.2-3.4); Absolute Monocyte Count 0.76 10^3/uL (0.1-0.8); Absolute Neutrophil Count 5.01 10^3/uL (1.2-6.7); Basophils % 0.9; Eosinophils % 2.3; HCT 40.4 % (36.0-46.0); HGB 13.9 g/dL (11.2-15.7); Immature Grans % 0.2; Lymphocytes % 30.6; MCH 31.8 pg (27.0-33.0); MCHC 34.4 % (32.0-36.0); MCV 92.4 fL (80-95); MPV 11.4 fL (8.0-11.0); Monocytes % 8.7; Neutrophils % 57.3; RBC 4.37 10^6/uL (3.93-5.22); RDW 11.9 % (11.7-14.6); RDW-SD 40.3 fL; WBC 8.75 10^3/uL (4.4-10.8)
[2021-07-31 19:04] LABS: Platelet Count 65 10^3/uL (130-400)
[2021-07-31 19:06] LABS: Diff Comment PLT Morph Reviewed
== END 2021-07-31 16:52 | disposition home or self-care (01) ==
LOC: LBN 16:51
PROVIDERS: PCP Family Medicine; Visit Provider Internal Medicine
DX: D69.3 Immune thrombocytopenic purpura (principal)
CPT/HCPCS: 85025

== ENCOUNTER 2021-08-07 11:14 | Outpatient (REF) | payer BC, SELFPAY ==
[2021-08-07 14:26] LABS: Abs Immature Grans 0.01 10^3/uL (0.0-0.06); Absolute Basophil Count 0.07 10^3/uL (0.0-0.2); Absolute Eosinophil Count 0.13 10^3/uL (0.0-0.7); Absolute Lymphocyte Count 2.56 10^3/uL (1.2-3.4); Absolute Monocyte Count 0.54 10^3/uL (0.1-0.8); Absolute Neutrophil Count 3.25 10^3/uL (1.2-6.7); Basophils % 1.1; HCT 39.7 % (36.0-46.0); HGB 13.5 g/dL (11.2-15.7); Immature Grans % 0.2; MCH 31.8 pg (27.0-33.0); MCV 93 fL (80-95); MPV 10.4 fL (8.0-11.0); Monocytes % 8.2; Neutrophils % 49.5; RBC 4.25 10^6/uL (3.93-5.22); RDW-SD 41.1 fL; WBC 6.56 10^3/uL (4.4-10.8)
[2021-08-07 14:34] LABS: Platelet Count 80 10^3/uL (130-400)
== END 2021-08-07 11:15 | disposition home or self-care (01) ==
LOC: LBN 11:14
PROVIDERS: PCP Family Medicine; Visit Provider Internal Medicine
DX: D69.3 Immune thrombocytopenic purpura (principal)
CPT/HCPCS: 85025

== ENCOUNTER 2021-08-14 10:10 | Outpatient (REF) | payer BC, SELFPAY ==
[2021-08-14 15:08] LABS: Lymphocytes % 28.6; Monocytes % 8.2
[2021-08-14 15:25] LABS: Abs Immature Grans 0.03 10^3/uL (0.0-0.06); Absolute Basophil Count 0.09 10^3/uL (0.0-0.2); Absolute Eosinophil Count 0.25 10^3/uL (0.0-0.7); Absolute Lymphocyte Count 2.61 10^3/uL (1.2-3.4); Absolute Monocyte Count 0.75 10^3/uL (0.1-0.8); Eosinophils % 2.7; HCT 40.7 % (36.0-46.0); HGB 13.7 g/dL (11.2-15.7); Immature Grans % 0.3; MCH 31.3 pg (27.0-33.0); MCHC 33.7 % (32.0-36.0); MCV 93 fL (80-95); MPV 11.4 fL (8.0-11.0); Neutrophils % 59.2; Platelet Count 123 10^3/uL (130-400); RBC 4.38 10^6/uL (3.93-5.22); RDW 12.3 % (11.7-14.6); RDW-SD 42.4 fL; WBC 9.11 10^3/uL (4.4-10.8)
[2021-08-14 15:28] LABS: Absolute Neutrophil Count 5.39 10^3/uL (1.2-6.7)
== END 2021-08-14 10:11 | disposition home or self-care (01) ==
LOC: LBN 10:10
PROVIDERS: PCP Family Medicine; Visit Provider Internal Medicine
DX: D69.3 Immune thrombocytopenic purpura (principal)
CPT/HCPCS: 85025

== ENCOUNTER 2021-08-21 16:03 | Outpatient (REF) | payer BC, SELFPAY ==
[2021-08-21 16:17] LABS: Abs Immature Grans 0.02 10^3/uL (0.0-0.06); Absolute Eosinophil Count 0.22 10^3/uL (0.0-0.7); Absolute Monocyte Count 0.61 10^3/uL (0.1-0.8); Absolute Neutrophil Count 4.11 10^3/uL (1.2-6.7); Basophils % 1.4; HCT 40.9 % (36.0-46.0); HGB 13.4 g/dL (11.2-15.7); Immature Grans % 0.3; Lymphocytes % 31.3; MCH 31.2 pg (27.0-33.0); MCHC 32.8 % (32.0-36.0); MCV 95 fL (80-95); MPV 10.7 fL (8.0-11.0); Monocytes % 8.3; Neutrophils % 55.7; Platelet Count 412 10^3/uL (130-400); RBC 4.29 10^6/uL (3.93-5.22); RDW 12.2 % (11.7-14.6); RDW-SD 42.7 fL; WBC 7.36 10^3/uL (4.4-10.8)
== END 2021-08-21 16:04 | disposition home or self-care (01) ==
LOC: LBN 16:03
PROVIDERS: PCP Family Medicine; Visit Provider Internal Medicine
DX: D69.3 Immune thrombocytopenic purpura (principal)
CPT/HCPCS: 85025

== ENCOUNTER 2021-08-28 11:49 | Outpatient (REF) | payer BC, SELFPAY ==
[2021-08-28 14:48] LABS: HCT 39.2 % (36.0-46.0); HGB 12.9 g/dL (11.2-15.7); MCH 31.2 pg (27.0-33.0); MCHC 32.9 % (32.0-36.0); MCV 95 fL (80-95); MPV 10.3 fL (8.0-11.0); Platelet Count 394 10^3/uL (130-400); RBC 4.13 10^6/uL (3.93-5.22); RDW 12.2 % (11.7-14.6); RDW-SD 42.7 fL; WBC 6.21 10^3/uL (4.4-10.8)
[2021-08-28 15:12] LABS: ALT 27 U/L (14-59); AST 16 U/L (15-37); Albumin 3.9 g/dL (3.4-5.0); Alkaline Phosphatase 46 U/L (46-116); Anion Gap 7.4 mmol/L (3-11); BUN 16 mg/dL (7-18); Bilirubin, Total 0.6 mg/dL (0.2-1.0); CO2 28.6 mmol/L (21.0-32.0); CREATININE 0.8 mg/dL (0.55-1.02); Calcium 8.8 mg/dL (8.5-10.1); Chloride 105 mmol/L (98-107); Glucose 70 mg/dL (74-106); Potassium 4.4 mmol/L (3.5-5.1); Sodium 141 mmol/L (136-145); Total Protein 6.8 g/dL (6.4-8.2)
== END 2021-08-28 11:50 | disposition home or self-care (01) ==
LOC: LBN 11:49
PROVIDERS: PCP Family Medicine; Visit Provider Internal Medicine
DX: D69.3 Immune thrombocytopenic purpura (principal)
CPT/HCPCS: 80053; 85027

== ENCOUNTER 2021-09-04 11:46 | Outpatient (REF) | payer BC, SELFPAY ==
[2021-09-04 14:20] LABS: HCT 40.5 % (36.0-46.0); HGB 13.5 g/dL (11.2-15.7); MCH 31.3 pg (27.0-33.0); MCHC 33.3 % (32.0-36.0); MCV 94 fL (80-95); MPV 10.2 fL (8.0-11.0); Platelet Count 262 10^3/uL (130-400); RBC 4.32 10^6/uL (3.93-5.22); RDW-SD 41.8 fL; WBC 7.82 10^3/uL (4.4-10.8)
[2021-09-04 15:23] LABS: ALT 25 U/L (14-59); AST 18 U/L (15-37); Alkaline Phosphatase 51 U/L (46-116); Anion Gap 7.2 mmol/L (3-11); BUN 9 mg/dL (7-18); Bilirubin, Total 0.7 mg/dL (0.2-1.0); CO2 27.8 mmol/L (21.0-32.0); CREATININE 0.8 mg/dL (0.55-1.02); Calcium 8.7 mg/dL (8.5-10.1); Chloride 104 mmol/L (98-107); Glucose 90 mg/dL (74-106); Potassium 4.8 mmol/L (3.5-5.1); Sodium 139 mmol/L (136-145); Total Protein 6.9 g/dL (6.4-8.2)
== END 2021-09-04 11:47 | disposition home or self-care (01) ==
LOC: LBN 11:46
PROVIDERS: PCP Family Medicine; Visit Provider Internal Medicine
DX: D69.3 Immune thrombocytopenic purpura (principal)
CPT/HCPCS: 80053; 85027

== ENCOUNTER 2021-09-14 11:25 | Outpatient (REF) | payer BC, SELFPAY ==
[2021-09-14 14:09] LABS: HCT 39.9 % (36.0-46.0); HGB 13.4 g/dL (11.2-15.7); MCH 30.9 pg (27.0-33.0); MCHC 33.6 % (32.0-36.0); MCV 92 fL (80-95); MPV 10.6 fL (8.0-11.0); Platelet Count 434 10^3/uL (130-400); RBC 4.34 10^6/uL (3.93-5.22); RDW 11.9 % (11.7-14.6); RDW-SD 40.1 fL; WBC 8.33 10^3/uL (4.4-10.8)
== END 2021-09-14 11:26 | disposition home or self-care (01) ==
LOC: LBN 11:25
PROVIDERS: PCP Family Medicine; Visit Provider Internal Medicine
DX: D69.3 Immune thrombocytopenic purpura (principal)
CPT/HCPCS: 85027

== ENCOUNTER 2021-09-18 11:25 | Outpatient (REF) | payer BC, SELFPAY ==
[2021-09-18 15:23] LABS: HCT 39.4 % (36.0-46.0); HGB 13.6 g/dL (11.2-15.7); MCH 31.5 pg (27.0-33.0); MCHC 34.5 % (32.0-36.0); MCV 91 fL (80-95); MPV 10.5 fL (8.0-11.0); Platelet Count 490 10^3/uL (130-400); RBC 4.32 10^6/uL (3.93-5.22); RDW 11.9 % (11.7-14.6); RDW-SD 39.8 fL; WBC 8.02 10^3/uL (4.4-10.8)
[2021-09-18 16:08] LABS: ALT 29 U/L (14-59); AST 25 U/L (15-37); Albumin 3.9 g/dL (3.4-5.0); Alkaline Phosphatase 54 U/L (46-116); Anion Gap 7.7 mmol/L (3-11); BUN 14 mg/dL (7-18); Bilirubin, Total 0.5 mg/dL (0.2-1.0); CO2 26.3 mmol/L (21.0-32.0); CREATININE 0.8 mg/dL (0.55-1.02); Calcium 9.1 mg/dL (8.5-10.1); Chloride 105 mmol/L (98-107); Glucose 80 mg/dL (74-106); Potassium 4.9 mmol/L (3.5-5.1); Sodium 139 mmol/L (136-145)
== END 2021-09-18 11:26 | disposition home or self-care (01) ==
LOC: LBN 11:25
PROVIDERS: PCP Family Medicine; Visit Provider Internal Medicine
DX: D69.3 Immune thrombocytopenic purpura (principal)
CPT/HCPCS: 80053; 85027

== ENCOUNTER 2021-09-21 10:08 | Outpatient (REF) | payer BC, SELFPAY ==
[2021-09-21 14:05] LABS: HCT 40.4 % (36.0-46.0); HGB 13.2 g/dL (11.2-15.7); MCH 30.5 pg (27.0-33.0); MCV 93 fL (80-95); MPV 10.3 fL (8.0-11.0); Platelet Count 398 10^3/uL (130-400); RBC 4.33 10^6/uL (3.93-5.22); RDW 11.8 % (11.7-14.6); RDW-SD 40.5 fL; WBC 6.08 10^3/uL (4.4-10.8)
[2021-09-21 14:06] LABS: MCHC 32.7 % (32.0-36.0)
== END 2021-09-21 10:09 | disposition home or self-care (01) ==
LOC: LBN 10:08
PROVIDERS: PCP Family Medicine; Visit Provider Internal Medicine
DX: D69.3 Immune thrombocytopenic purpura (principal)
CPT/HCPCS: 85027

== ENCOUNTER 2021-09-24 11:46 | Outpatient (REF) | payer BC, SELFPAY ==
[2021-09-24 14:35] LABS: HCT 41.9 % (36.0-46.0); HGB 13.9 g/dL (11.2-15.7); MCH 30.8 pg (27.0-33.0); MCHC 33.2 % (32.0-36.0); MCV 93 fL (80-95); MPV 10.2 fL (8.0-11.0); Platelet Count 238 10^3/uL (130-400); RBC 4.52 10^6/uL (3.93-5.22); RDW 11.7 % (11.7-14.6); RDW-SD 39.8 fL; WBC 6.42 10^3/uL (4.4-10.8)
== END 2021-09-24 11:47 | disposition home or self-care (01) ==
LOC: LBN 11:46
PROVIDERS: PCP Family Medicine; Visit Provider Internal Medicine
DX: D69.3 Immune thrombocytopenic purpura (principal)
CPT/HCPCS: 85027

== ENCOUNTER 2021-09-27 16:36 | Outpatient (REF) | payer BC, SELFPAY ==
[2021-09-27 15:40] LABS: HCT 41.9 % (36.0-46.0); HGB 13.8 g/dL (11.2-15.7); MCH 30.5 pg (27.0-33.0); MCHC 32.9 % (32.0-36.0); MCV 93 fL (80-95); MPV 10.5 fL (8.0-11.0); Platelet Count 120 10^3/uL (130-400); RBC 4.53 10^6/uL (3.93-5.22); RDW 11.6 % (11.7-14.6); RDW-SD 39.4 fL; WBC 6.96 10^3/uL (4.4-10.8)
== END 2021-09-27 16:37 | disposition home or self-care (01) ==
LOC: LBN 16:36
PROVIDERS: PCP Family Medicine; Visit Provider Internal Medicine
DX: D69.3 Immune thrombocytopenic purpura (principal)
CPT/HCPCS: 85027

== ENCOUNTER 2021-10-03 16:45 | Outpatient (REF) | payer BC, SELFPAY ==
[2021-10-03 16:23] LABS: HCT 39.3 % (36.0-46.0); HGB 13.7 g/dL (11.2-15.7); MCH 31.4 pg (27.0-33.0); MCHC 34.9 % (32.0-36.0); MCV 90 fL (80-95); MPV 10.9 fL (8.0-11.0); RBC 4.36 10^6/uL (3.93-5.22); RDW 11.5 % (11.7-14.6); RDW-SD 37.7 fL; WBC 6.37 10^3/uL (4.4-10.8)
[2021-10-03 17:04] LABS: Platelet Count 62 10^3/uL (130-400)
== END 2021-10-03 16:46 | disposition home or self-care (01) ==
LOC: NCHCN 16:45
PROVIDERS: PCP Family Medicine; Visit Provider Internal Medicine
DX: D69.3 Immune thrombocytopenic purpura (principal)
CPT/HCPCS: 85027

== ENCOUNTER 2021-10-09 15:57 | Outpatient (REF) | payer BC, SELFPAY ==
[2021-10-09 18:23] LABS: HCT 41.8 % (36.0-46.0); HGB 14.1 g/dL (11.2-15.7); MCH 30.9 pg (27.0-33.0); MCHC 33.7 % (32.0-36.0); MCV 92 fL (80-95); MPV 11.4 fL (8.0-11.0); Platelet Count 120 10^3/uL (130-400); RBC 4.57 10^6/uL (3.93-5.22); RDW 11.7 % (11.7-14.6); RDW-SD 38.8 fL; WBC 6.98 10^3/uL (4.4-10.8)
== END 2021-10-09 15:58 | disposition home or self-care (01) ==
LOC: LBN 15:57
PROVIDERS: PCP Family Medicine; Visit Provider Internal Medicine
DX: D69.3 Immune thrombocytopenic purpura (principal)
CPT/HCPCS: 85027

== ENCOUNTER 2021-10-16 12:00 | Outpatient (REF) | payer BC, SELFPAY ==
[2021-10-16 21:21] LABS: HCT 39.3 % (36.0-46.0); HGB 13.4 g/dL (11.2-15.7); MCH 30.9 pg (27.0-33.0); MCHC 34.1 % (32.0-36.0); MCV 91 fL (80-95); MPV 10.9 fL (8.0-11.0); Platelet Count 163 10^3/uL (130-400); RBC 4.33 10^6/uL (3.93-5.22); RDW 11.8 % (11.7-14.6); RDW-SD 39.3 fL; WBC 6.06 10^3/uL (4.4-10.8)
[2021-10-16 21:46] LABS: ALT 23 U/L (14-59); AST 20 U/L (15-37); Albumin 4.1 g/dL (3.4-5.0); Alkaline Phosphatase 41 U/L (46-116); Anion Gap 10.1 mmol/L (3-11); BUN 14 mg/dL (7-18); Bilirubin, Total 0.5 mg/dL (0.2-1.0); CO2 27.9 mmol/L (21.0-32.0); CREATININE 0.7 mg/dL (0.55-1.02); Calcium 8.8 mg/dL (8.5-10.1); Chloride 104 mmol/L (98-107); Glucose 95 mg/dL (74-106); Potassium 4.2 mmol/L (3.5-5.1); Sodium 142 mmol/L (136-145); Total Protein 7.2 g/dL (6.4-8.2)
== END 2021-10-16 12:01 | disposition home or self-care (01) ==
LOC: LBN 12:00
PROVIDERS: Visit Provider Internal Medicine
DX: D69.3 Immune thrombocytopenic purpura (principal)
CPT/HCPCS: 80053; 85027

== ENCOUNTER 2021-10-23 18:40 | Outpatient (REF) | payer BC, SELFPAY ==
[2021-10-23 15:26] LABS: HCT 40.1 % (36.0-46.0); HGB 13.7 g/dL (11.2-15.7); MCH 30.8 pg (27.0-33.0); MCHC 34.2 % (32.0-36.0); MCV 90 fL (80-95); MPV 11.1 fL (8.0-11.0); RBC 4.45 10^6/uL (3.93-5.22); RDW 11.3 % (11.7-14.6); RDW-SD 37.6 fL
[2021-10-23 16:09] LABS: Platelet Count 84 10^3/uL (130-400)
== END 2021-10-23 18:41 | disposition home or self-care (01) ==
LOC: LBN 18:40
PROVIDERS: Visit Provider Internal Medicine
DX: D69.3 Immune thrombocytopenic purpura (principal)
CPT/HCPCS: 85027

== ENCOUNTER 2021-11-06 10:53 | Outpatient (REF) | payer BC, SELFPAY ==
[2021-11-06 15:04] LABS: HCT 41.7 % (36.0-46.0); HGB 14.6 g/dL (11.2-15.7); MCH 31.2 pg (27.0-33.0); MCV 89 fL (80-95); MPV 10.8 fL (8.0-11.0); Platelet Count 137 10^3/uL (130-400); RBC 4.68 10^6/uL (3.93-5.22); RDW 11.6 % (11.7-14.6); RDW-SD 37.2 fL; WBC 6.22 10^3/uL (4.4-10.8)
== END 2021-11-06 10:54 | disposition home or self-care (01) ==
LOC: LBN 10:53
PROVIDERS: Visit Provider Internal Medicine
DX: D69.3 Immune thrombocytopenic purpura (principal)
CPT/HCPCS: 85027

== ENCOUNTER 2021-11-20 12:57 | Outpatient (REF) | payer BC, SELFPAY ==
[2021-11-20 15:54] LABS: MCH 30.7 pg (27.0-33.0); MCHC 34.1 % (32.0-36.0); MCV 90 fL (80-95); MPV 11.1 fL (8.0-11.0); RBC 4.56 10^6/uL (3.93-5.22); RDW 11.7 % (11.7-14.6); RDW-SD 38.2 fL
[2021-11-20 16:05] LABS: ALT 25 U/L (14-59); AST 21 U/L (15-37); Albumin 4.1 g/dL (3.4-5.0); Alkaline Phosphatase 36 U/L (46-116); Anion Gap 8.5 mmol/L (3-11); BUN 17 mg/dL (7-18); Bilirubin, Total 0.5 mg/dL (0.2-1.0); CO2 27.5 mmol/L (21.0-32.0); CREATININE 0.7 mg/dL (0.55-1.02); Calcium 8.9 mg/dL (8.5-10.1); Chloride 103 mmol/L (98-107); Glucose 98 mg/dL (74-106); Potassium 4.4 mmol/L (3.5-5.1); Sodium 139 mmol/L (136-145); Total Protein 7.5 g/dL (6.4-8.2)
[2021-11-20 16:10] LABS: Platelet Count 120 10^3/uL (130-400)
== END 2021-11-20 12:58 | disposition home or self-care (01) ==
LOC: LBN 12:57
PROVIDERS: Visit Provider Internal Medicine
DX: D69.3 Immune thrombocytopenic purpura (principal)
CPT/HCPCS: 80053; 85027

== ENCOUNTER 2021-11-27 14:53 | Outpatient (REF) | payer BC, SELFPAY ==
[2021-11-27 17:18] LABS: HCT 40.1 % (36.0-46.0); HGB 14.1 g/dL (11.2-15.7); MCH 30.9 pg (27.0-33.0); MCHC 35.2 % (32.0-36.0); MCV 88 fL (80-95); MPV 11.1 fL (8.0-11.0); Platelet Count 164 10^3/uL (130-400); RBC 4.56 10^6/uL (3.93-5.22); RDW 11.7 % (11.7-14.6); RDW-SD 37.5 fL; WBC 8.19 10^3/uL (4.4-10.8)
== END 2021-11-27 14:54 | disposition home or self-care (01) ==
LOC: LBN 14:53
PROVIDERS: Visit Provider Internal Medicine
DX: D69.3 Immune thrombocytopenic purpura (principal)
CPT/HCPCS: 85027

== ENCOUNTER 2021-12-18 09:56 | Outpatient (REF) | payer BC, SELFPAY ==
[2021-12-18 14:40] LABS: Abs Immature Grans 0.01 10^3/uL (0.0-0.06); Absolute Basophil Count 0.06 10^3/uL (0.0-0.2); Absolute Eosinophil Count 0.11 10^3/uL (0.0-0.7); Absolute Lymphocyte Count 1.95 10^3/uL (1.2-3.4); Absolute Monocyte Count 0.43 10^3/uL (0.1-0.8); Absolute Neutrophil Count 2.36 10^3/uL (1.2-6.7); Basophils % 1.2; Eosinophils % 2.2; HCT 41.8 % (36.0-46.0); HGB 14.1 g/dL (11.2-15.7); Immature Grans % 0.2; Lymphocytes % 39.6; MCH 30.9 pg (27.0-33.0); MCHC 33.7 % (32.0-36.0); MCV 92 fL (80-95); MPV 11.7 fL (8.0-11.0); Monocytes % 8.7; Neutrophils % 48.1; RBC 4.57 10^6/uL (3.93-5.22); RDW 11.9 % (11.7-14.6); WBC 4.92 10^3/uL (4.4-10.8)
[2021-12-18 14:57] LABS: ALT 21 U/L (14-59); AST 19 U/L (15-37); Alkaline Phosphatase 37 U/L (46-116); Anion Gap 5.2 mmol/L (3-11); BUN 9 mg/dL (7-18); Bilirubin, Total 0.4 mg/dL (0.2-1.0); CO2 28.8 mmol/L (21.0-32.0); CREATININE 0.7 mg/dL (0.55-1.02); Calcium 9.1 mg/dL (8.5-10.1); Chloride 103 mmol/L (98-107); Estimated GFR 111.36 (mL/min/1.73m2); Glucose 92 mg/dL (74-106); Potassium 4.2 mmol/L (3.5-5.1); Sodium 137 mmol/L (136-145); Total Protein 7.2 g/dL (6.4-8.2)
[2021-12-18 15:00] LABS: Platelet Count 50 10^3/uL (130-400)
== END 2021-12-18 09:57 | disposition home or self-care (01) ==
LOC: LBN 09:56
PROVIDERS: Visit Provider Internal Medicine
DX: D69.3 Immune thrombocytopenic purpura (principal)
CPT/HCPCS: 80053; 85025

== ENCOUNTER 2022-01-01 15:05 | Outpatient (REF) | payer BC, SELFPAY ==
[2022-01-01 20:18] LABS: Abs Immature Grans 0.01 10^3/uL (0.0-0.06); Absolute Basophil Count 0.06 10^3/uL (0.0-0.2); Absolute Eosinophil Count 0.12 10^3/uL (0.0-0.7); Absolute Lymphocyte Count 2.03 10^3/uL (1.2-3.4); Absolute Monocyte Count 0.46 10^3/uL (0.1-0.8); Absolute Neutrophil Count 3.16 10^3/uL (1.2-6.7); Eosinophils % 2.1; HCT 41.1 % (36.0-46.0); HGB 13.7 g/dL (11.2-15.7); Immature Grans % 0.2; Lymphocytes % 34.8; MCH 30.6 pg (27.0-33.0); MCHC 33.3 % (32.0-36.0); MCV 92 fL (80-95); MPV 11.5 fL (8.0-11.0); Monocytes % 7.9; RBC 4.48 10^6/uL (3.93-5.22); RDW 12.1 % (11.7-14.6); RDW-SD 40.9 fL; WBC 5.84 10^3/uL (4.4-10.8)
[2022-01-01 20:44] LABS: Platelet Count 89 10^3/uL (130-400)
== END 2022-01-01 15:06 | disposition home or self-care (01) ==
LOC: LBN 15:05
PROVIDERS: Visit Provider Internal Medicine
DX: D69.3 Immune thrombocytopenic purpura (principal)
CPT/HCPCS: 85025

== ENCOUNTER 2022-01-10 20:25 | Outpatient (REF) | payer BC, SELFPAY ==
[2022-01-10 20:49] LABS: Abs Immature Grans 0.01 10^3/uL (0.0-0.06); Absolute Basophil Count 0.08 10^3/uL (0.0-0.2); Absolute Eosinophil Count 0.09 10^3/uL (0.0-0.7); Absolute Lymphocyte Count 2.42 10^3/uL (1.2-3.4); Absolute Neutrophil Count 4.15 10^3/uL (1.2-6.7); Basophils % 1.1; Eosinophils % 1.2; HCT 41.2 % (36.0-46.0); Immature Grans % 0.1; Lymphocytes % 33.4; MCH 30.6 pg (27.0-33.0); MCV 90 fL (80-95); MPV 11.5 fL (8.0-11.0); Monocytes % 6.9; Neutrophils % 57.3; Platelet Count 78 10^3/uL (130-400); RBC 4.58 10^6/uL (3.93-5.22); RDW 11.7 % (11.7-14.6); RDW-SD 38.6 fL; WBC 7.25 10^3/uL (4.4-10.8)
[2022-01-10 21:15] LABS: ALT 20 U/L (14-59); AST 17 U/L (15-37); Albumin 4.1 g/dL (3.4-5.0); Alkaline Phosphatase 39 U/L (46-116); Anion Gap 7.5 mmol/L (3-11); BUN 10 mg/dL (7-18); Bilirubin, Total 0.4 mg/dL (0.2-1.0); CO2 27.5 mmol/L (21.0-32.0); CREATININE 0.7 mg/dL (0.55-1.02); Calcium 8.7 mg/dL (8.5-10.1); Chloride 105 mmol/L (98-107); Estimated GFR 111.36 (mL/min/1.73m2); Glucose 78 mg/dL (74-106); Lipase 36 U/L (73-393); Potassium 3.9 mmol/L (3.5-5.1); Sodium 140 mmol/L (136-145); Total Protein 7.3 g/dL (6.4-8.2)
== END 2022-01-10 20:26 | disposition home or self-care (01) ==
LOC: NCHCN 20:25
PROVIDERS: Visit Provider Family Medicine
DX: R11.0 Nausea (principal); R19.7 Diarrhea, unspecified
CPT/HCPCS: 80053; 83690; 85025

== ENCOUNTER 2022-02-11 20:43 | Outpatient (REF) | payer BC, SELFPAY ==
[2022-02-11 21:24] LABS: Abs Immature Grans 0.01 10^3/uL (0.0-0.06); Absolute Basophil Count 0.06 10^3/uL (0.0-0.2); Absolute Eosinophil Count 0.11 10^3/uL (0.0-0.7); Absolute Lymphocyte Count 2.34 10^3/uL (1.2-3.4); Absolute Monocyte Count 0.46 10^3/uL (0.1-0.8); Absolute Neutrophil Count 3.86 10^3/uL (1.2-6.7); Basophils % 0.9; Eosinophils % 1.6; HCT 43.2 % (36.0-46.0); HGB 14.5 g/dL (11.2-15.7); Immature Grans % 0.1; Lymphocytes % 34.2; MCH 30.9 pg (27.0-33.0); MCHC 33.6 % (32.0-36.0); MCV 92 fL (80-95); MPV 11.3 fL (8.0-11.0); Monocytes % 6.7; Neutrophils % 56.5; RBC 4.69 10^6/uL (3.93-5.22); RDW-SD 40.7 fL; WBC 6.84 10^3/uL (4.4-10.8)
[2022-02-11 21:47] LABS: Platelet Count 64 10^3/uL (130-400)
== END 2022-02-11 20:44 | disposition home or self-care (01) ==
LOC: LBN 20:43
PROVIDERS: PCP Family Medicine; Visit Provider Internal Medicine
DX: D69.3 Immune thrombocytopenic purpura (principal)
CPT/HCPCS: 85025

== ENCOUNTER 2022-03-12 18:28 | Outpatient (REF) | payer BC, SELFPAY ==
[2022-03-12 16:54] LABS: Abs Immature Grans 0.02 10^3/uL (0.0-0.06); Absolute Basophil Count 0.07 10^3/uL (0.0-0.2); Absolute Eosinophil Count 0.18 10^3/uL (0.0-0.7); Absolute Lymphocyte Count 2.26 10^3/uL (1.2-3.4); Absolute Monocyte Count 0.44 10^3/uL (0.1-0.8); Absolute Neutrophil Count 3.54 10^3/uL (1.2-6.7); Basophils % 1.1; Eosinophils % 2.8; HCT 45.4 % (36.0-46.0); HGB 15.4 g/dL (11.2-15.7); Immature Grans % 0.3; Lymphocytes % 34.7; MCH 30.7 pg (27.0-33.0); MCHC 33.9 % (32.0-36.0); MCV 91 fL (80-95); MPV 11.2 fL (8.0-11.0); Monocytes % 6.8; Neutrophils % 54.3; Platelet Count 82 10^3/uL (130-400); RBC 5.01 10^6/uL (3.93-5.22); RDW 11.9 % (11.7-14.6); RDW-SD 39.8 fL; WBC 6.51 10^3/uL (4.4-10.8)
[2022-03-12 17:19] LABS: ALT 23 U/L (14-59); AST 20 U/L (15-37); Albumin 4.4 g/dL (3.4-5.0); Alkaline Phosphatase 44 U/L (46-116); Anion Gap 8.3 mmol/L (3-11); BUN 12 mg/dL (7-18); Bilirubin, Total 0.6 mg/dL (0.2-1.0); CO2 26.7 mmol/L (21.0-32.0); CREATININE 0.7 mg/dL (0.55-1.02); Calcium 9.2 mg/dL (8.5-10.1); Chloride 105 mmol/L (98-107); Estimated GFR 111.36 (mL/min/1.73m2); Glucose 97 mg/dL (74-106); Potassium 4.6 mmol/L (3.5-5.1); Sodium 140 mmol/L (136-145); Total Protein 7.8 g/dL (6.4-8.2)
== END 2022-03-12 18:29 | disposition home or self-care (01) ==
LOC: LBN 18:28
PROVIDERS: Internal Medicine; PCP Family Medicine; Visit Provider Family Medicine
DX: D69.3 Immune thrombocytopenic purpura (principal)
CPT/HCPCS: 80053; 85025

== ENCOUNTER 2022-04-09 17:56 | Outpatient (REF) | payer BC, SELFPAY ==
[2022-04-09 16:40] LABS: Abs Immature Grans 0.03 10^3/uL (0.0-0.06); Absolute Basophil Count 0.08 10^3/uL (0.0-0.2); Absolute Eosinophil Count 0.16 10^3/uL (0.0-0.7); Absolute Lymphocyte Count 2.38 10^3/uL (1.2-3.4); Absolute Monocyte Count 0.54 10^3/uL (0.1-0.8); Absolute Neutrophil Count 4.95 10^3/uL (1.2-6.7); HCT 43.6 % (36.0-46.0); HGB 14.8 g/dL (11.2-15.7); Immature Grans % 0.4; Lymphocytes % 29.2; MCH 30.8 pg (27.0-33.0); MCHC 33.9 % (32.0-36.0); MCV 91 fL (80-95); MPV 11.2 fL (8.0-11.0); Monocytes % 6.6; Neutrophils % 60.8; Platelet Count 103 10^3/uL (130-400); RDW 11.8 % (11.7-14.6); RDW-SD 39.3 fL; WBC 8.14 10^3/uL (4.4-10.8)
== END 2022-04-09 17:57 | disposition home or self-care (01) ==
LOC: LBN 17:56
PROVIDERS: PCP Family Medicine; Visit Provider Internal Medicine
DX: D69.3 Immune thrombocytopenic purpura (principal)
CPT/HCPCS: 85025

== ENCOUNTER 2022-04-23 21:54 | Outpatient (REF) | payer BC, SELFPAY ==
[2022-04-23 22:44] LABS: Abs Immature Grans 0.01 10^3/uL (0.0-0.06); Absolute Basophil Count 0.08 10^3/uL (0.0-0.2); Absolute Eosinophil Count 0.17 10^3/uL (0.0-0.7); Absolute Lymphocyte Count 2.42 10^3/uL (1.2-3.4); Absolute Monocyte Count 0.44 10^3/uL (0.1-0.8); Absolute Neutrophil Count 4.66 10^3/uL (1.2-6.7); Eosinophils % 2.2; HCT 41.7 % (36.0-46.0); HGB 14.1 g/dL (11.2-15.7); Immature Grans % 0.1; Lymphocytes % 31.1; MCH 31.3 pg (27.0-33.0); MCHC 33.8 % (32.0-36.0); MCV 93 fL (80-95); MPV 11.2 fL (8.0-11.0); Monocytes % 5.7; Neutrophils % 59.9; RDW 11.9 % (11.7-14.6); RDW-SD 41.1 fL; WBC 7.78 10^3/uL (4.4-10.8)
[2022-04-23 23:00] LABS: ALT 26 U/L (14-59); AST 24 U/L (15-37); Albumin 4.3 g/dL (3.4-5.0); Alkaline Phosphatase 44 U/L (46-116); Anion Gap 6.2 mmol/L (3-11); BUN 12 mg/dL (7-18); Bilirubin, Total 0.5 mg/dL (0.2-1.0); CO2 26.8 mmol/L (21.0-32.0); CREATININE 0.8 mg/dL (0.55-1.02); Chloride 104 mmol/L (98-107); Estimated GFR 94.87 (mL/min/1.73m2); Glucose 94 mg/dL (74-106); Potassium 4.1 mmol/L (3.5-5.1); Sodium 137 mmol/L (136-145); Total Protein 7.3 g/dL (6.4-8.2)
[2022-04-23 23:10] LABS: Diff Comment PLT Morph Reviewed; Platelet Count 93 10^3/uL (130-400)
== END 2022-04-23 21:55 | disposition home or self-care (01) ==
LOC: LBN 21:54
PROVIDERS: PCP Family Medicine; Visit Provider Internal Medicine
DX: D69.3 Immune thrombocytopenic purpura (principal)
CPT/HCPCS: 80053; 85025

== ENCOUNTER 2022-05-14 16:07 | Outpatient (REF) | payer BC, SELFPAY ==
[2022-05-14 16:30] LABS: Abs Immature Grans 0.01 10^3/uL (0.0-0.06); Absolute Basophil Count 0.09 10^3/uL (0.0-0.2); Absolute Eosinophil Count 0.18 10^3/uL (0.0-0.7); Absolute Lymphocyte Count 2.23 10^3/uL (1.2-3.4); Absolute Monocyte Count 0.44 10^3/uL (0.1-0.8); Basophils % 1.5; Eosinophils % 2.9; HCT 43.4 % (36.0-46.0); HGB 14.8 g/dL (11.2-15.7); Immature Grans % 0.2; Lymphocytes % 36.3; MCH 31.1 pg (27.0-33.0); MCHC 34.1 % (32.0-36.0); MCV 91 fL (80-95); MPV 11.5 fL (8.0-11.0); Monocytes % 7.2; Neutrophils % 51.9; RBC 4.76 10^6/uL (3.93-5.22); RDW 11.9 % (11.7-14.6); RDW-SD 40.3 fL; WBC 6.15 10^3/uL (4.4-10.8)
[2022-05-14 16:35] LABS: ALT 24 U/L (14-59); AST 23 U/L (15-37); Albumin 4.1 g/dL (3.4-5.0); Alkaline Phosphatase 45 U/L (46-116); Anion Gap 3.5 mmol/L (3-11); BUN 12 mg/dL (7-18); Bilirubin, Total 0.4 mg/dL (0.2-1.0); C-Reactive Protein 0.11 mg/dL (0.0-0.3); CO2 29.5 mmol/L (21.0-32.0); CREATININE 0.7 mg/dL (0.55-1.02); Calcium 8.8 mg/dL (8.5-10.1); Chloride 107 mmol/L (98-107); Estimated GFR 111.36 (mL/min/1.73m2); FREE T4 1.01 ng/dL (0.76-1.46); Glucose 93 mg/dL (74-106); Potassium 4.4 mmol/L (3.5-5.1); Sodium 140 mmol/L (136-145); TSH 1.57 uIU/mL (0.36-3.74); Total Protein 7.1 g/dL (6.4-8.2)
[2022-05-14 16:41] LABS: ESR 1 mm/hr (0-20)
[2022-05-14 17:33] LABS: Platelet Count 93 10^3/uL (130-400)
== END 2022-05-14 16:08 | disposition home or self-care (01) ==
LOC: NCHCN 16:07
PROVIDERS: PCP Family Medicine; Visit Provider Family Medicine
DX: R63.4 Abnormal weight loss (principal)
CPT/HCPCS: 80053; 85652; 84439; 84443; 85025; 86140

== ENCOUNTER 2022-06-11 09:38 | Outpatient (REF) | payer BC, SELFPAY ==
[2022-06-11 15:36] LABS: Abs Immature Grans 0.02 10^3/uL (0.0-0.06); Absolute Basophil Count 0.08 10^3/uL (0.0-0.2); Absolute Lymphocyte Count 1.99 10^3/uL (1.2-3.4); Absolute Monocyte Count 0.51 10^3/uL (0.1-0.8); Absolute Neutrophil Count 3.82 10^3/uL (1.2-6.7); Basophils % 1.2; HCT 42.6 % (36.0-46.0); HGB 14.7 g/dL (11.2-15.7); Immature Grans % 0.3; Lymphocytes % 30.1; MCH 32.5 pg (27.0-33.0); MCHC 34.5 % (32.0-36.0); MCV 94 fL (80-95); MPV 11.6 fL (8.0-11.0); Monocytes % 7.7; Neutrophils % 57.7; Platelet Count 89 10^3/uL (130-400); RBC 4.52 10^6/uL (3.93-5.22); RDW 12.4 % (11.7-14.6); RDW-SD 42.3 fL; WBC 6.62 10^3/uL (4.4-10.8)
[2022-06-11 15:47] LABS: ALT 26 U/L (14-59); AST 18 U/L (15-37); Alkaline Phosphatase 46 U/L (46-116); Anion Gap 7.2 mmol/L (3-11); BUN 10 mg/dL (7-18); Bilirubin, Total 0.4 mg/dL (0.2-1.0); CO2 27.8 mmol/L (21.0-32.0); CREATININE 0.8 mg/dL (0.55-1.02); Calcium 8.9 mg/dL (8.5-10.1); Chloride 106 mmol/L (98-107); Estimated GFR 94.87 (mL/min/1.73m2); Glucose 85 mg/dL (74-106); Potassium 4.3 mmol/L (3.5-5.1); Sodium 141 mmol/L (136-145); Total Protein 7.1 g/dL (6.4-8.2)
[2022-06-11 22:01] LABS: Diff Comment Agrees w/ Instrument; RBC Morphology Normal
== END 2022-06-11 09:39 | disposition home or self-care (01) ==
LOC: LBN 09:38
PROVIDERS: PCP Family Medicine; Visit Provider Internal Medicine
DX: D69.3 Immune thrombocytopenic purpura (principal)
CPT/HCPCS: 80053; 85025

== ENCOUNTER 2022-06-11 13:24 | Outpatient (REF) | payer BC, SELFPAY ==
[2022-06-11 16:57] LABS: Vitamin B12 386 pg/mL (193-986)
== END 2022-06-11 13:25 | disposition home or self-care (01) ==
LOC: NCHCN 13:24
PROVIDERS: PCP Family Medicine; Visit Provider Family Medicine
DX: R63.4 Abnormal weight loss (principal); K58.9 Irritable bowel syndrome, unspecified; D69.6 Thrombocytopenia, unspecified
CPT/HCPCS: 82607

== ENCOUNTER 2022-07-17 10:07 | Outpatient (REF) | payer BC, SELFPAY ==
[2022-07-17 13:24] LABS: Abs Immature Grans 0.01 10^3/uL (0.0-0.06); Absolute Basophil Count 0.07 10^3/uL (0.0-0.2); Absolute Eosinophil Count 0.14 10^3/uL (0.0-0.7); Absolute Lymphocyte Count 2.36 10^3/uL (1.2-3.4); Absolute Monocyte Count 0.38 10^3/uL (0.1-0.8); Absolute Neutrophil Count 2.78 10^3/uL (1.2-6.7); Basophils % 1.2; Eosinophils % 2.4; HCT 43.5 % (36.0-46.0); HGB 14.9 g/dL (11.2-15.7); Immature Grans % 0.2; Lymphocytes % 41.1; MCH 31.3 pg (27.0-33.0); MCHC 34.3 % (32.0-36.0); MCV 91 fL (80-95); MPV 11.4 fL (8.0-11.0); Monocytes % 6.6; Neutrophils % 48.5; RBC 4.76 10^6/uL (3.93-5.22); RDW 11.9 % (11.7-14.6); RDW-SD 40.5 fL; WBC 5.74 10^3/uL (4.4-10.8)
[2022-07-17 14:15] LABS: ALT 29 U/L (14-59); AST 22 U/L (15-37); Albumin 3.9 g/dL (3.4-5.0); Alkaline Phosphatase 47 U/L (46-116); Anion Gap 5.9 mmol/L (3-11); BUN 12 mg/dL (7-18); Bilirubin, Total 0.4 mg/dL (0.2-1.0); CO2 28.1 mmol/L (21.0-32.0); CREATININE 0.8 mg/dL (0.55-1.02); Calcium 8.8 mg/dL (8.5-10.1); Chloride 104 mmol/L (98-107); Estimated GFR 94.28 (mL/min/1.73m2); Glucose 95 mg/dL (74-106); Potassium 4.3 mmol/L (3.5-5.1); Sodium 138 mmol/L (136-145); Total Protein 7.1 g/dL (6.4-8.2)
[2022-07-17 14:21] LABS: Diff Comment Diff Reviewed; Platelet Count 63 10^3/uL (130-400); RBC Morphology Normal
== END 2022-07-17 10:08 | disposition home or self-care (01) ==
LOC: LBN 10:07
PROVIDERS: PCP Family Medicine; Visit Provider Internal Medicine
DX: D69.3 Immune thrombocytopenic purpura (principal)
CPT/HCPCS: 80053; 85025

== ENCOUNTER 2022-08-20 15:09 | Outpatient (REF) | payer BC, SELFPAY ==
[2022-08-20 15:28] LABS: Abs Immature Grans 0.02 10^3/uL (0.0-0.06); Absolute Basophil Count 0.06 10^3/uL (0.0-0.2); Absolute Eosinophil Count 0.15 10^3/uL (0.0-0.7); Absolute Lymphocyte Count 2.19 10^3/uL (1.2-3.4); Absolute Monocyte Count 0.55 10^3/uL (0.1-0.8); Absolute Neutrophil Count 3.56 10^3/uL (1.2-6.7); Basophils % 0.9; Eosinophils % 2.3; HCT 43.3 % (36.0-46.0); Immature Grans % 0.3; Lymphocytes % 33.5; MCH 31.2 pg (27.0-33.0); MCHC 34.6 % (32.0-36.0); MCV 90 fL (80-95); MPV 11.4 fL (8.0-11.0); Monocytes % 8.4; Neutrophils % 54.6; Platelet Count 97 10^3/uL (130-400); RBC 4.81 10^6/uL (3.93-5.22); RDW 11.9 % (11.7-14.6); RDW-SD 39.3 fL; WBC 6.53 10^3/uL (4.4-10.8)
[2022-08-20 16:01] LABS: ALT 30 U/L (14-59); AST 23 U/L (15-37); Alkaline Phosphatase 43 U/L (46-116); Anion Gap 8.6 mmol/L (3-11); BUN 16 mg/dL (7-18); Bilirubin, Total 0.6 mg/dL (0.2-1.0); CO2 26.4 mmol/L (21.0-32.0); CREATININE 0.7 mg/dL (0.55-1.02); Chloride 104 mmol/L (98-107); Estimated GFR 110.67 (mL/min/1.73m2); Glucose 94 mg/dL (74-106); Potassium 4.2 mmol/L (3.5-5.1); Sodium 139 mmol/L (136-145); Total Protein 7.2 g/dL (6.4-8.2)
== END 2022-08-20 15:10 | disposition home or self-care (01) ==
LOC: LBN 15:09
PROVIDERS: PCP Family Medicine; Visit Provider Internal Medicine
DX: D69.3 Immune thrombocytopenic purpura (principal)
CPT/HCPCS: 80053; 85025

== ENCOUNTER 2022-08-21 15:07 | Outpatient (REF) | payer BC, SELFPAY ==
[2022-08-21 16:06] LABS: ESR 1 mm/hr (0-20)
[2022-08-21 16:19] LABS: Bilirubin Negative (Negative); Blood Trace-intact (Negative); Clarity Clear (Clear); Glucose Negative (Negative); Ketones Negative (Negative); Leukocyte Esterase Negative (Negative); Nitrite Negative (Negative); Urobilinogen 0.2 mg/dL (Up to 0.2)
[2022-08-21 16:34] LABS: C-Reactive Protein 0.18 mg/dL (0.0-0.3); TSH (W/Ref FT4) 1.91 uIU/mL (0.36-3.74)
[2022-08-21 16:38] LABS: Bacteria Negative HPF (Negative); C & S Indicated? No; Casts Negative LPF (Negative); Crystals Negative HPF (Negative); Epithelial Cells Few HPF (Negative); Mucus Negative (Negative); RBC 0-2 HPF (0-2); WBC 0-2 HPF (0-5)
[2022-08-21 17:45] LABS: Hemoglobin A1C 5.2 % (<5.7)
[2022-08-23 09:55] LABS: Hepatitis C Ab w Rflx HCV PCR Negative (Negative)
[2022-08-23 10:22] LABS: HIV-1/2 Ag & Ab Screen Negative (Negative)
== END 2022-08-21 15:08 | disposition home or self-care (01) ==
LOC: NCHCN 15:07
PROVIDERS: PCP Family Medicine; Visit Provider Family Medicine
DX: R63.4 Abnormal weight loss (principal); Z11.4 Encounter for screening for human immunodeficiency virus [HIV]; Z11.59 Encounter for screening for other viral diseases; Z13.1 Encounter for screening for diabetes mellitus
CPT/HCPCS: 85652; 86803; 87389; 81003; 81015; 83036; 84443; 86140

== ENCOUNTER 2022-09-24 12:53 | Outpatient (REF) | payer BC, SELFPAY ==
[2022-09-24 14:44] LABS: Abs Immature Grans 0.01 10^3/uL (0.0-0.06); Absolute Basophil Count 0.09 10^3/uL (0.0-0.2); Absolute Eosinophil Count 0.14 10^3/uL (0.0-0.7); Absolute Lymphocyte Count 2.36 10^3/uL (1.2-3.4); Absolute Monocyte Count 0.41 10^3/uL (0.1-0.8); Absolute Neutrophil Count 3.31 10^3/uL (1.2-6.7); Basophils % 1.4; Eosinophils % 2.2; HCT 43.9 % (36.0-46.0); HGB 14.9 g/dL (11.2-15.7); Immature Grans % 0.2; Lymphocytes % 37.3; MCH 30.7 pg (27.0-33.0); MCHC 33.9 % (32.0-36.0); MCV 91 fL (80-95); MPV 11.4 fL (8.0-11.0); Monocytes % 6.5; Neutrophils % 52.4; RBC 4.85 10^6/uL (3.93-5.22); RDW 12.1 % (11.7-14.6); RDW-SD 40.3 fL; WBC 6.32 10^3/uL (4.4-10.8)
[2022-09-24 14:54] LABS: ALT 32 U/L (14-59); AST 23 U/L (15-37); Albumin 4.1 g/dL (3.4-5.0); Alkaline Phosphatase 57 U/L (46-116); Anion Gap 7.6 mmol/L (3-11); BUN 13 mg/dL (7-18); Bilirubin, Total 0.4 mg/dL (0.2-1.0); CO2 25.4 mmol/L (21.0-32.0); CREATININE 0.7 mg/dL (0.55-1.02); Calcium 8.8 mg/dL (8.5-10.1); Chloride 106 mmol/L (98-107); Estimated GFR 110.67 (mL/min/1.73m2); Glucose 98 mg/dL (74-106); Potassium 4.3 mmol/L (3.5-5.1); Sodium 139 mmol/L (136-145); Total Protein 7.4 g/dL (6.4-8.2)
[2022-09-24 14:59] LABS: Platelet Count 93 10^3/uL (130-400)
== END 2022-09-24 12:54 | disposition home or self-care (01) ==
LOC: LBN 12:53
PROVIDERS: PCP Family Medicine; Visit Provider Internal Medicine
DX: D69.3 Immune thrombocytopenic purpura (principal)
CPT/HCPCS: 80053; 85025

== ENCOUNTER 2022-10-11 10:53 | Outpatient (REF) | payer BC, SELFPAY ==
[2022-10-11 14:19] LABS: Abs Immature Grans 0.01 10^3/uL (0.0-0.06); Absolute Basophil Count 0.09 10^3/uL (0.0-0.2); Absolute Eosinophil Count 0.17 10^3/uL (0.0-0.7); Absolute Lymphocyte Count 2.41 10^3/uL (1.2-3.4); Absolute Monocyte Count 0.39 10^3/uL (0.1-0.8); Absolute Neutrophil Count 3.21 10^3/uL (1.2-6.7); Basophils % 1.4; Eosinophils % 2.7; HCT 43.7 % (36.0-46.0); HGB 15.1 g/dL (11.2-15.7); Immature Grans % 0.2; Lymphocytes % 38.4; MCH 31.3 pg (27.0-33.0); MCHC 34.6 % (32.0-36.0); MCV 91 fL (80-95); MPV 11.2 fL (8.0-11.0); Monocytes % 6.2; Neutrophils % 51.1; RBC 4.83 10^6/uL (3.93-5.22); RDW 11.9 % (11.7-14.6); RDW-SD 39.8 fL; WBC 6.28 10^3/uL (4.4-10.8)
[2022-10-11 14:34] LABS: ALT 37 U/L (14-59); AST 26 U/L (15-37); Albumin 4.2 g/dL (3.4-5.0); Alkaline Phosphatase 52 U/L (46-116); Anion Gap 6.2 mmol/L (3-11); BUN 10 mg/dL (7-18); Bilirubin, Total 0.6 mg/dL (0.2-1.0); CO2 29.8 mmol/L (21.0-32.0); CREATININE 0.7 mg/dL (0.55-1.02); Calcium 9.1 mg/dL (8.5-10.1); Calculated LDL 96 mg/dL (<100); Chloride 103 mmol/L (98-107); Cholesterol 159 mg/dL (<200); Estimated GFR 110.67 (mL/min/1.73m2); Glucose 98 mg/dL (74-106); HDL Cholesterol 55 mg/dL (40-60); Potassium 5.1 mmol/L (3.5-5.1); Sodium 139 mmol/L (136-145); Total Protein 7.4 g/dL (6.4-8.2); Triglyceride 43 mg/dL (<150)
[2022-10-11 14:36] LABS: RBC Morphology Normal
[2022-10-11 14:37] LABS: Diff Comment PLT Morph Reviewed; Platelet Count 48 10^3/uL (130-400)
== END 2022-10-11 10:54 | disposition home or self-care (01) ==
LOC: NCHCN 10:53
PROVIDERS: PCP Family Medicine; Visit Provider Family Medicine
DX: D69.3 Immune thrombocytopenic purpura (principal); E78.5 Hyperlipidemia, unspecified; Z00.00 Encounter for general adult medical examination without abnormal findings
CPT/HCPCS: 80053; 80061; 85025

== ENCOUNTER 2022-10-15 13:11 | Outpatient (CLI) | payer BC, SELFPAY ==
[2022-10-15 12:37] LABS: Abs Immature Grans 0.01 10^3/uL (0.0-0.06); Absolute Basophil Count 0.07 10^3/uL (0.0-0.2); Absolute Eosinophil Count 0.23 10^3/uL (0.0-0.7); Absolute Lymphocyte Count 3.07 10^3/uL (1.2-3.4); Absolute Monocyte Count 0.53 10^3/uL (0.1-0.8); Absolute Neutrophil Count 4.74 10^3/uL (1.2-6.7); Basophils % 0.8; Eosinophils % 2.7; HGB 15.2 g/dL (11.2-15.7); Immature Grans % 0.1; Lymphocytes % 35.5; MCH 31.1 pg (27.0-33.0); MCHC 34.5 % (32.0-36.0); MCV 90 fL (80-95); MPV 11.4 fL (8.0-11.0); Monocytes % 6.1; Neutrophils % 54.8; RBC 4.89 10^6/uL (3.93-5.22); RDW 11.9 % (11.7-14.6); RDW-SD 38.9 fL; WBC 8.65 10^3/uL (4.4-10.8)
[2022-10-15 13:03] LABS: Diff Comment Diff Reviewed; Platelet Count 54 10^3/uL (130-400); RBC Morphology Normal
== END 2022-10-15 13:12 | disposition home or self-care (01) ==
LOC: LBO 13:11
PROVIDERS: PCP Family Medicine; Visit Provider Internal Medicine
DX: D69.3 Immune thrombocytopenic purpura (principal)
CPT/HCPCS: 36415; 85025

== ENCOUNTER 2022-10-29 10:46 | Outpatient (REF) | payer BC, SELFPAY ==
[2022-10-29 14:15] LABS: Abs Immature Grans 0.02 10^3/uL (0.0-0.06); Absolute Basophil Count 0.07 10^3/uL (0.0-0.2); Absolute Eosinophil Count 0.16 10^3/uL (0.0-0.7); Absolute Lymphocyte Count 1.94 10^3/uL (1.2-3.4); Absolute Monocyte Count 0.52 10^3/uL (0.1-0.8); Absolute Neutrophil Count 5.76 10^3/uL (1.2-6.7); Basophils % 0.8; Eosinophils % 1.9; HCT 41.5 % (36.0-46.0); HGB 14.3 g/dL (11.2-15.7); Immature Grans % 0.2; Lymphocytes % 22.9; MCHC 34.5 % (32.0-36.0); MCV 90 fL (80-95); MPV 11.3 fL (8.0-11.0); Monocytes % 6.1; Neutrophils % 68.1; RBC 4.61 10^6/uL (3.93-5.22); RDW 12.1 % (11.7-14.6); RDW-SD 39.8 fL; WBC 8.47 10^3/uL (4.4-10.8)
[2022-10-29 14:24] LABS: ALT 28 U/L (14-59); AST 21 U/L (15-37); Albumin 3.8 g/dL (3.4-5.0); Alkaline Phosphatase 46 U/L (46-116); Anion Gap 6.1 mmol/L (3-11); BUN 10 mg/dL (7-18); Bilirubin, Total 0.5 mg/dL (0.2-1.0); CO2 26.9 mmol/L (21.0-32.0); CREATININE 0.7 mg/dL (0.55-1.02); Calcium 8.7 mg/dL (8.5-10.1); Chloride 106 mmol/L (98-107); Estimated GFR 110.67 (mL/min/1.73m2); Glucose 95 mg/dL (74-106); Sodium 139 mmol/L (136-145); Total Protein 6.8 g/dL (6.4-8.2)
[2022-10-29 15:00] LABS: Platelet Count 70 10^3/uL (130-400)
== END 2022-10-29 10:47 | disposition home or self-care (01) ==
LOC: LBN 10:46
PROVIDERS: PCP Family Medicine; Visit Provider Internal Medicine
DX: D69.3 Immune thrombocytopenic purpura (principal)
CPT/HCPCS: 80053; 85025

== ENCOUNTER 2022-11-05 15:49 | Outpatient (REF) | payer BC, SELFPAY ==
[2022-11-05 21:43] LABS: Source Nasal/Nares
[2022-11-05 21:47] LABS: Abs Immature Grans 0.03 10^3/uL (0.0-0.06); Absolute Eosinophil Count 0.22 10^3/uL (0.0-0.7); Absolute Lymphocyte Count 2.85 10^3/uL (1.2-3.4); Absolute Monocyte Count 0.62 10^3/uL (0.1-0.8); Absolute Neutrophil Count 6.15 10^3/uL (1.2-6.7); Eosinophils % 2.2; HCT 44.3 % (36.0-46.0); HGB 15.4 g/dL (11.2-15.7); Immature Grans % 0.3; Lymphocytes % 28.6; MCH 31.4 pg (27.0-33.0); MCHC 34.8 % (32.0-36.0); MCV 90 fL (80-95); MPV 11.3 fL (8.0-11.0); Monocytes % 6.2; Neutrophils % 61.7; RBC 4.91 10^6/uL (3.93-5.22); RDW 12.4 % (11.7-14.6); RDW-SD 40.9 fL; WBC 9.97 10^3/uL (4.4-10.8)
[2022-11-05 22:24] LABS: Platelet Count 68 10^3/uL (130-400)
[2022-11-05 22:28] LABS: COVID-19 PCR POSITIVE (Negative)
== END 2022-11-05 15:50 | disposition home or self-care (01) ==
LOC: NCHCN 15:49
PROVIDERS: PCP Family Medicine; Visit Provider Nurse Practitioner Family
DX: D69.3 Immune thrombocytopenic purpura (principal); Z20.822 Contact with and (suspected) exposure to COVID-19
CPT/HCPCS: 87635; 85025

== ENCOUNTER 2022-12-04 09:39 | Outpatient (REF) | payer BC, SELFPAY ==
[2022-12-04 17:27] LABS: Abs Immature Grans 0.02 10^3/uL (0.0-0.06); Absolute Basophil Count 0.07 10^3/uL (0.0-0.2); Absolute Eosinophil Count 0.19 10^3/uL (0.0-0.7); Absolute Lymphocyte Count 2.22 10^3/uL (1.2-3.4); Absolute Monocyte Count 0.45 10^3/uL (0.1-0.8); Absolute Neutrophil Count 4.02 10^3/uL (1.2-6.7); Eosinophils % 2.7; HCT 42.6 % (36.0-46.0); HGB 14.7 g/dL (11.2-15.7); Immature Grans % 0.3; Lymphocytes % 31.9; MCH 31.1 pg (27.0-33.0); MCHC 34.5 % (32.0-36.0); MCV 90 fL (80-95); Monocytes % 6.5; Neutrophils % 57.6; RBC 4.72 10^6/uL (3.93-5.22); RDW 12.1 % (11.7-14.6); RDW-SD 40.5 fL; WBC 6.97 10^3/uL (4.4-10.8)
[2022-12-04 18:01] LABS: ALT 22 U/L (14-59); AST 20 U/L (15-37); Albumin 3.8 g/dL (3.4-5.0); Alkaline Phosphatase 48 U/L (46-116); Anion Gap 5.4 mmol/L (3-11); BUN 9 mg/dL (7-18); Bilirubin, Total 0.5 mg/dL (0.2-1.0); CO2 28.6 mmol/L (21.0-32.0); CREATININE 0.7 mg/dL (0.55-1.02); Calcium 9.1 mg/dL (8.5-10.1); Chloride 103 mmol/L (98-107); Estimated GFR 110.67 (mL/min/1.73m2); Glucose 89 mg/dL (74-106); Potassium 4.5 mmol/L (3.5-5.1); Sodium 137 mmol/L (136-145); Total Protein 6.9 g/dL (6.4-8.2)
[2022-12-04 18:28] LABS: Platelet Count 31 10^3/uL (130-400)
== END 2022-12-04 09:40 | disposition home or self-care (01) ==
LOC: LBN 09:39
PROVIDERS: PCP Family Medicine; Visit Provider Internal Medicine
DX: D69.3 Immune thrombocytopenic purpura (principal)
CPT/HCPCS: 80053; 85025

== ENCOUNTER 2022-12-11 09:07 | Outpatient (REF) | payer BC, SELFPAY ==
[2022-12-11 15:01] LABS: Abs Immature Grans 0.01 10^3/uL (0.0-0.06); Absolute Basophil Count 0.07 10^3/uL (0.0-0.2); Absolute Lymphocyte Count 2.29 10^3/uL (1.2-3.4); Absolute Monocyte Count 0.39 10^3/uL (0.1-0.8); Absolute Neutrophil Count 3.39 10^3/uL (1.2-6.7); Basophils % 1.1; Eosinophils % 3.1; HCT 43.5 % (36.0-46.0); HGB 15.1 g/dL (11.2-15.7); Immature Grans % 0.2; Lymphocytes % 36.1; MCH 31.3 pg (27.0-33.0); MCHC 34.7 % (32.0-36.0); MCV 90 fL (80-95); MPV 11.6 fL (8.0-11.0); Monocytes % 6.1; Neutrophils % 53.4; RBC 4.83 10^6/uL (3.93-5.22); RDW 12.2 % (11.7-14.6); RDW-SD 40.8 fL; WBC 6.35 10^3/uL (4.4-10.8)
[2022-12-11 15:04] LABS: Platelet Count 75 10^3/uL (130-400)
== END 2022-12-11 09:08 | disposition home or self-care (01) ==
LOC: LBN 09:07
PROVIDERS: PCP Family Medicine; Visit Provider Internal Medicine
DX: D69.3 Immune thrombocytopenic purpura (principal)
CPT/HCPCS: 85025

== ENCOUNTER 2023-01-09 21:31 | Outpatient (REF) | payer BC, SELFPAY ==
[2023-01-09 17:59] LABS: Abs Immature Grans 0.01 10^3/uL (0.0-0.06); Absolute Basophil Count 0.07 10^3/uL (0.0-0.2); Absolute Eosinophil Count 0.18 10^3/uL (0.0-0.7); Absolute Lymphocyte Count 1.32 10^3/uL (1.2-3.4); Absolute Monocyte Count 0.68 10^3/uL (0.1-0.8); Absolute Neutrophil Count 4.02 10^3/uL (1.2-6.7); Basophils % 1.1; Eosinophils % 2.9; HCT 40.5 % (36.0-46.0); HGB 13.8 g/dL (11.2-15.7); Immature Grans % 0.2; MCH 31.6 pg (27.0-33.0); MCHC 34.1 % (32.0-36.0); MCV 93 fL (80-95); Monocytes % 10.8; RBC 4.37 10^6/uL (3.93-5.22); RDW 12.3 % (11.7-14.6); RDW-SD 42.1 fL; WBC 6.28 10^3/uL (4.4-10.8)
[2023-01-09 18:38] LABS: Platelet Count 31 10^3/uL (130-400)
== END 2023-01-09 21:32 | disposition home or self-care (01) ==
LOC: LBN 21:31
PROVIDERS: PCP Family Medicine; Visit Provider Internal Medicine
DX: D69.3 Immune thrombocytopenic purpura (principal)
CPT/HCPCS: 85025

== ENCOUNTER 2023-01-15 09:21 | Outpatient (REF) | payer BC, SELFPAY ==
[2023-01-15 16:11] LABS: Abs Immature Grans 0.02 10^3/uL (0.0-0.06); Absolute Basophil Count 0.06 10^3/uL (0.0-0.2); Absolute Eosinophil Count 0.23 10^3/uL (0.0-0.7); Absolute Lymphocyte Count 2.18 10^3/uL (1.2-3.4); Absolute Monocyte Count 0.59 10^3/uL (0.1-0.8); Absolute Neutrophil Count 4.81 10^3/uL (1.2-6.7); Basophils % 0.8; Eosinophils % 2.9; HCT 42.4 % (36.0-46.0); HGB 14.5 g/dL (11.2-15.7); Immature Grans % 0.3; Lymphocytes % 27.6; MCH 31.3 pg (27.0-33.0); MCHC 34.2 % (32.0-36.0); MCV 92 fL (80-95); MPV 10.9 fL (8.0-11.0); Monocytes % 7.5; Neutrophils % 60.9; Platelet Count 175 10^3/uL (130-400); RBC 4.63 10^6/uL (3.93-5.22); RDW 12.5 % (11.7-14.6); WBC 7.89 10^3/uL (4.4-10.8)
== END 2023-01-15 09:22 | disposition home or self-care (01) ==
LOC: LBN 09:21
PROVIDERS: PCP Family Medicine; Visit Provider Internal Medicine
DX: D69.3 Immune thrombocytopenic purpura (principal)
CPT/HCPCS: 85025

== ENCOUNTER 2023-02-07 09:27 | Outpatient (REF) | payer BC, SELFPAY ==
[2023-02-07 14:39] LABS: Abs Immature Grans 0.01 10^3/uL (0.0-0.06); Absolute Basophil Count 0.08 10^3/uL (0.0-0.2); Absolute Eosinophil Count 0.22 10^3/uL (0.0-0.7); Absolute Lymphocyte Count 2.43 10^3/uL (1.2-3.4); Absolute Monocyte Count 0.43 10^3/uL (0.1-0.8); Absolute Neutrophil Count 3.81 10^3/uL (1.2-6.7); Basophils % 1.1; Eosinophils % 3.2; HCT 45.9 % (36.0-46.0); HGB 15.9 g/dL (11.2-15.7); Immature Grans % 0.1; Lymphocytes % 34.8; MCH 31.2 pg (27.0-33.0); MCHC 34.6 % (32.0-36.0); MCV 90 fL (80-95); MPV 11.9 fL (8.0-11.0); Monocytes % 6.2; Neutrophils % 54.6; RBC 5.09 10^6/uL (3.93-5.22); RDW 11.9 % (11.7-14.6); RDW-SD 39.5 fL; WBC 6.98 10^3/uL (4.4-10.8)
[2023-02-07 14:43] LABS: C-Reactive Protein 0.14 mg/dL (0.0-0.3)
[2023-02-07 14:58] LABS: Diff Comment Diff Reviewed; Platelet Count 46 10^3/uL (130-400); RBC Morphology Normal
[2023-02-10 14:57] LABS: ANA Interpretation Negative (Negative)
== END 2023-02-07 09:28 | disposition home or self-care (01) ==
LOC: LBN 09:27
PROVIDERS: PCP Family Medicine; Visit Provider Internal Medicine
DX: D69.3 Immune thrombocytopenic purpura (principal)
CPT/HCPCS: 85025; 86038; 86140

== ENCOUNTER 2023-03-19 16:06 | Outpatient (REF) | payer BC, SELFPAY ==
[2023-03-19 16:52] LABS: Abs Immature Grans 0.01 10^3/uL (0.0-0.06); Absolute Basophil Count 0.07 10^3/uL (0.0-0.2); Absolute Eosinophil Count 0.14 10^3/uL (0.0-0.7); Absolute Lymphocyte Count 2.06 10^3/uL (1.2-3.4); Absolute Monocyte Count 0.36 10^3/uL (0.1-0.8); Absolute Neutrophil Count 2.99 10^3/uL (1.2-6.7); Basophils % 1.2; Eosinophils % 2.5; HCT 45.2 % (36.0-46.0); HGB 15.4 g/dL (11.2-15.7); Immature Grans % 0.2; Lymphocytes % 36.6; MCH 30.9 pg (27.0-33.0); MCHC 34.1 % (32.0-36.0); MCV 91 fL (80-95); MPV 12.1 fL (8.0-11.0); Monocytes % 6.4; Neutrophils % 53.1; RBC 4.98 10^6/uL (3.93-5.22); RDW 11.6 % (11.7-14.6); WBC 5.63 10^3/uL (4.4-10.8)
[2023-03-19 17:06] LABS: Platelet Count 60 10^3/uL (130-400)
[2023-03-19 17:11] LABS: C-Reactive Protein 0.17 mg/dL (0.0-0.3)
[2023-03-21 17:20] LABS: ANA Interpretation Negative (Negative)
== END 2023-03-19 16:07 | disposition home or self-care (01) ==
LOC: LBN 16:06
PROVIDERS: PCP Family Medicine; Visit Provider Internal Medicine
DX: D69.3 Immune thrombocytopenic purpura (principal)
CPT/HCPCS: 85025; 86038; 86140

== ENCOUNTER 2023-04-23 15:24 | Outpatient (REF) | payer BC, SELFPAY ==
[2023-04-23 20:49] LABS: Abs Immature Grans 0.02 10^3/uL (0.0-0.06); Absolute Basophil Count 0.08 10^3/uL (0.0-0.2); Absolute Lymphocyte Count 2.89 10^3/uL (1.2-3.4); Absolute Monocyte Count 0.54 10^3/uL (0.1-0.8); Absolute Neutrophil Count 5.37 10^3/uL (1.2-6.7); Basophils % 0.9; Eosinophils % 2.2; HCT 44.1 % (36.0-46.0); HGB 15.1 g/dL (11.2-15.7); Immature Grans % 0.2; Lymphocytes % 31.8; MCH 30.9 pg (27.0-33.0); MCHC 34.2 % (32.0-36.0); MCV 90 fL (80-95); MPV 10.7 fL (8.0-11.0); Monocytes % 5.9; RBC 4.89 10^6/uL (3.93-5.22); RDW 11.9 % (11.7-14.6); RDW-SD 39.5 fL
[2023-04-23 21:11] LABS: Diff Comment Diff Reviewed; Platelet Count 66 10^3/uL (130-400); RBC Morphology Normal
== END 2023-04-23 15:25 | disposition home or self-care (01) ==
LOC: LBN 15:24
PROVIDERS: PCP Family Medicine; Visit Provider Internal Medicine
DX: D69.3 Immune thrombocytopenic purpura (principal)
CPT/HCPCS: 85025

== ENCOUNTER 2023-05-15 13:07 | Outpatient (REF) | payer BC, SELFPAY ==
[2023-05-15 14:53] LABS: Abs Immature Grans 0.02 10^3/uL (0.0-0.06); Absolute Eosinophil Count 0.14 10^3/uL (0.0-0.7); Absolute Lymphocyte Count 2.39 10^3/uL (1.2-3.4); Absolute Monocyte Count 0.43 10^3/uL (0.1-0.8); Absolute Neutrophil Count 3.97 10^3/uL (1.2-6.7); Basophils % 1.4; HCT 43.6 % (36.0-46.0); Immature Grans % 0.3; Lymphocytes % 33.9; MCH 30.9 pg (27.0-33.0); MCHC 34.4 % (32.0-36.0); MCV 90 fL (80-95); MPV 12.5 fL (8.0-11.0); Monocytes % 6.1; Neutrophils % 56.3; RBC 4.85 10^6/uL (3.93-5.22); RDW-SD 39.8 fL; WBC 7.05 10^3/uL (4.4-10.8)
[2023-05-15 15:27] LABS: Platelet Count 49 10^3/uL (130-400)
[2023-05-15 23:15] LABS: HBs Antibody, Qual Positive (See Note); HBs Antibody, Quant 19.4 mIU/mL (See Note); Hepatitis B Core Antibody Negative (Negative); Hepatitis B surface Ag Negative (Negative); Hepatitis C Ab w Rflx HCV PCR Negative (Negative)
[2023-05-15 23:29] LABS: HIV-1/2 Ag & Ab Screen Negative (Negative)
== END 2023-05-15 13:08 | disposition home or self-care (01) ==
LOC: NCHCN 13:07
PROVIDERS: PCP Family Medicine; Visit Provider Family Medicine
DX: D69.3 Immune thrombocytopenic purpura (principal); W46.1XXA Contact with contaminated hypodermic needle, initial encounter; Z11.4 Encounter for screening for human immunodeficiency virus [HIV]; Z11.59 Encounter for screening for other viral diseases
CPT/HCPCS: 86704; 86706; 86803; 87340; 87389; 85025

== ENCOUNTER 2023-06-03 14:59 | Outpatient (REF) | payer BC, SELFPAY ==
[2023-06-03 17:37] LABS: Abs Immature Grans 0.01 10^3/uL (0.0-0.06); Absolute Basophil Count 0.07 10^3/uL (0.0-0.2); Absolute Eosinophil Count 0.15 10^3/uL (0.0-0.7); Absolute Lymphocyte Count 2.42 10^3/uL (1.2-3.4); Absolute Monocyte Count 0.45 10^3/uL (0.1-0.8); Absolute Neutrophil Count 2.78 10^3/uL (1.2-6.7); Basophils % 1.2; Eosinophils % 2.6; HCT 43.3 % (36.0-46.0); HGB 14.8 g/dL (11.2-15.7); Immature Grans % 0.2; Lymphocytes % 41.2; MCHC 34.2 % (32.0-36.0); MCV 91 fL (80-95); MPV 11.7 fL (8.0-11.0); Monocytes % 7.7; Neutrophils % 47.1; RBC 4.77 10^6/uL (3.93-5.22); RDW 12.2 % (11.7-14.6); RDW-SD 40.5 fL; WBC 5.88 10^3/uL (4.4-10.8)
[2023-06-03 17:57] LABS: Platelet Count 63 10^3/uL (130-400)
== END 2023-06-03 15:00 | disposition home or self-care (01) ==
LOC: LBN 14:59
PROVIDERS: PCP Family Medicine; Referring Provider Family Medicine; Visit Provider Internal Medicine
DX: D69.3 Immune thrombocytopenic purpura (principal)
CPT/HCPCS: 85025

== ENCOUNTER 2023-06-25 10:56 | Outpatient (REF) | payer BC, SELFPAY ==
[2023-06-25 14:36] LABS: Abs Immature Grans 0.02 10^3/uL (0.0-0.06); Absolute Basophil Count 0.09 10^3/uL (0.0-0.2); Absolute Eosinophil Count 0.16 10^3/uL (0.0-0.7); Absolute Lymphocyte Count 1.94 10^3/uL (1.2-3.4); Absolute Monocyte Count 0.48 10^3/uL (0.1-0.8); Absolute Neutrophil Count 3.99 10^3/uL (1.2-6.7); Basophils % 1.3; Eosinophils % 2.4; HCT 43.4 % (36.0-46.0); Immature Grans % 0.3; MCH 31.1 pg (27.0-33.0); MCHC 34.6 % (32.0-36.0); MCV 90 fL (80-95); MPV 11.1 fL (8.0-11.0); Monocytes % 7.2; Neutrophils % 59.8; Platelet Count 169 10^3/uL (130-400); RBC 4.83 10^6/uL (3.93-5.22); RDW-SD 39.7 fL; WBC 6.68 10^3/uL (4.4-10.8)
== END 2023-06-25 10:57 | disposition home or self-care (01) ==
LOC: NCHCN 10:56
PROVIDERS: Internal Medicine; PCP Family Medicine; Referring Provider Family Medicine; Visit Provider Family Medicine
DX: Z86.32 Personal history of gestational diabetes (principal); D69.3 Immune thrombocytopenic purpura
CPT/HCPCS: 83036; 85025

== ENCOUNTER 2023-07-29 14:43 | Outpatient (REF) | payer BC, SELFPAY ==
[2023-07-29 16:20] LABS: Abs Immature Grans 0.02 10^3/uL (0.0-0.06); Absolute Basophil Count 0.09 10^3/uL (0.0-0.2); Absolute Eosinophil Count 0.14 10^3/uL (0.0-0.7); Absolute Lymphocyte Count 1.87 10^3/uL (1.2-3.4); Absolute Monocyte Count 0.48 10^3/uL (0.1-0.8); Absolute Neutrophil Count 4.04 10^3/uL (1.2-6.7); Basophils % 1.4; Eosinophils % 2.1; HCT 45.3 % (36.0-46.0); HGB 15.2 g/dL (11.2-15.7); Immature Grans % 0.3; Lymphocytes % 28.2; MCHC 33.6 % (32.0-36.0); MCV 92 fL (80-95); MPV 11.9 fL (8.0-11.0); Monocytes % 7.2; Neutrophils % 60.8; RDW 11.9 % (11.7-14.6); WBC 6.64 10^3/uL (4.4-10.8)
[2023-07-29 17:17] LABS: Platelet Count 33 10^3/uL (130-400)
[2023-07-29 17:18] LABS: Diff Comment PLT Morph Reviewed; RBC Morphology Normal
== END 2023-07-29 14:44 | disposition home or self-care (01) ==
LOC: LBN 14:43
PROVIDERS: PCP Family Medicine; Visit Provider Internal Medicine
DX: D69.3 Immune thrombocytopenic purpura (principal)
CPT/HCPCS: 85025

== ENCOUNTER 2023-09-03 09:18 | Outpatient (REF) | payer BC, SELFPAY ==
[2023-09-03 16:01] LABS: Abs Immature Grans 0.02 10^3/uL (0.0-0.06); Absolute Basophil Count 0.03 10^3/uL (0.0-0.2); Absolute Eosinophil Count 0.19 10^3/uL (0.0-0.7); Absolute Lymphocyte Count 1.93 10^3/uL (1.2-3.4); Absolute Monocyte Count 0.35 10^3/uL (0.1-0.8); Basophils % 0.6 %; Eosinophils % 3.6 %; HCT 40.6 % (36.0-46.0); HGB 13.4 g/dL (11.2-15.7); Immature Grans % 0.4 %; Lymphocytes % 36.3 %; MCH 29.3 pg (27.0-33.0); MCV 89 fL (80-95); MPV 10.7 fL (8.0-11.0); Monocytes % 6.6 %; Neutrophils % 52.5 %; Platelet Count 226 10^3/uL (130-400); RBC 4.58 10^6/uL (3.93-5.22); RDW 12.8 % (11.7-14.6); RDW-SD 41.5 fL; WBC 5.32 10^3/uL (4.4-10.8)
== END 2023-09-03 09:19 | disposition home or self-care (01) ==
LOC: LBN 09:18
PROVIDERS: PCP Family Medicine; Visit Provider Internal Medicine
DX: D69.3 Immune thrombocytopenic purpura (principal)
CPT/HCPCS: 85025

== ENCOUNTER 2023-10-15 21:36 | Outpatient (REF) | payer BC, SELFPAY ==
[2023-10-15 22:05] LABS: Abs Immature Grans 0.01 10^3/uL (0.0-0.06); Absolute Basophil Count 0.08 10^3/uL (0.0-0.2); Absolute Eosinophil Count 0.18 10^3/uL (0.0-0.7); Absolute Lymphocyte Count 2.53 10^3/uL (1.2-3.4); Absolute Monocyte Count 0.51 10^3/uL (0.1-0.8); Absolute Neutrophil Count 3.63 10^3/uL (1.2-6.7); Basophils % 1.2 %; Eosinophils % 2.6 %; HCT 41.2 % (36.0-46.0); Immature Grans % 0.1 %; Lymphocytes % 36.5 %; MCV 91 fL (80-95); Monocytes % 7.3 %; Neutrophils % 52.3 %; RBC 4.51 10^6/uL (3.93-5.22); RDW 12.2 % (11.7-14.6); WBC 6.94 10^3/uL (4.4-10.8)
[2023-10-15 22:36] LABS: Diff Comment PLT Morph Reviewed
[2023-10-15 22:37] LABS: RBC Morphology Normal
== END 2023-10-15 21:37 | disposition home or self-care (01) ==
LOC: NCHCN 21:36
PROVIDERS: Internal Medicine; PCP Family Medicine; Visit Provider Family Medicine
DX: R53.83 Other fatigue (principal); D69.3 Immune thrombocytopenic purpura
CPT/HCPCS: 85025

== ENCOUNTER 2023-11-05 17:16 | Outpatient (REF) | payer BC, SELFPAY ==
[2023-11-05 21:17] LABS: Abs Immature Grans 0.02 10^3/uL (0.0-0.06); Absolute Basophil Count 0.08 10^3/uL (0.0-0.2); Absolute Eosinophil Count 0.16 10^3/uL (0.0-0.7); Absolute Lymphocyte Count 2.78 10^3/uL (1.2-3.4); Absolute Neutrophil Count 3.24 10^3/uL (1.2-6.7); Basophils % 1.2 %; Eosinophils % 2.4 %; HCT 41.2 % (36.0-46.0); HGB 14.2 g/dL (11.2-15.7); Immature Grans % 0.3 %; MCH 31.2 pg (27.0-33.0); MCHC 34.5 % (32.0-36.0); MCV 91 fL (80-95); Monocytes % 7.4 %; Neutrophils % 47.7 %; RBC 4.55 10^6/uL (3.93-5.22); RDW 11.9 % (11.7-14.6); RDW-SD 39.7 fL; WBC 6.78 10^3/uL (4.4-10.8)
[2023-11-05 21:53] LABS: Platelet Count 45 10^3/uL (130-400)
== END 2023-11-05 17:17 | disposition home or self-care (01) ==
LOC: NCHCN 17:16
PROVIDERS: Internal Medicine; PCP Family Medicine; Visit Provider Family Medicine
DX: D69.3 Immune thrombocytopenic purpura (principal)
CPT/HCPCS: 85025

== ENCOUNTER 2023-12-03 22:44 | Outpatient (REF) | payer BC, SELFPAY ==
[2023-12-03 22:50] LABS: Abs Immature Grans 0.01 10^3/uL (0.0-0.06); Absolute Basophil Count 0.07 10^3/uL (0.0-0.2); Absolute Eosinophil Count 0.28 10^3/uL (0.0-0.7); Absolute Monocyte Count 0.54 10^3/uL (0.1-0.8); Absolute Neutrophil Count 3.69 10^3/uL (1.2-6.7); Basophils % 0.9 %; Eosinophils % 3.8 %; HCT 41.5 % (36.0-46.0); HGB 14.1 g/dL (11.2-15.7); Immature Grans % 0.1 %; Lymphocytes % 37.9 %; MCH 31.5 pg (27.0-33.0); MCV 93 fL (80-95); Monocytes % 7.3 %; RBC 4.48 10^6/uL (3.93-5.22); RDW 12.2 % (11.7-14.6); RDW-SD 41.9 fL; WBC 7.39 10^3/uL (4.4-10.8)
[2023-12-03 22:55] LABS: MPV 11.9 fL (8.0-11.0); Platelet Count 139 10^3/uL (130-400)
== END 2023-12-03 22:45 | disposition home or self-care (01) ==
LOC: LBN 22:44
PROVIDERS: PCP Family Medicine; Visit Provider Internal Medicine
DX: D69.3 Immune thrombocytopenic purpura (principal)
CPT/HCPCS: 85025

== ENCOUNTER 2023-12-18 16:33 | Outpatient (REF) | payer BC, SELFPAY ==
[2023-12-18 21:46] LABS: Abs Immature Grans 0.01 10^3/uL (0.0-0.06); Absolute Basophil Count 0.06 10^3/uL (0.0-0.2); Absolute Eosinophil Count 0.23 10^3/uL (0.0-0.7); Absolute Lymphocyte Count 2.68 10^3/uL (1.2-3.4); Absolute Monocyte Count 0.46 10^3/uL (0.1-0.8); Absolute Neutrophil Count 3.73 10^3/uL (1.2-6.7); Basophils % 0.8 %; Eosinophils % 3.2 %; HCT 41.7 % (36.0-46.0); Immature Grans % 0.1 %; Lymphocytes % 37.4 %; MCH 31.3 pg (27.0-33.0); MCHC 33.6 % (32.0-36.0); MCV 93 fL (80-95); MPV 11.5 fL (8.0-11.0); Monocytes % 6.4 %; Neutrophils % 52.1 %; Platelet Count 147 10^3/uL (130-400); RBC 4.47 10^6/uL (3.93-5.22); RDW 12.4 % (11.7-14.6); RDW-SD 42.7 fL; WBC 7.17 10^3/uL (4.4-10.8)
== END 2023-12-18 16:34 | disposition home or self-care (01) ==
LOC: LBN 16:33
PROVIDERS: PCP Family Medicine; Visit Provider Internal Medicine
DX: D69.3 Immune thrombocytopenic purpura (principal)
CPT/HCPCS: 85025

== ENCOUNTER 2024-05-18 13:25 | Outpatient (REF) | payer BC, SELFPAY ==
[2024-05-18 14:15] LABS: HCT 45.6 % (36.0-46.0); HGB 15.6 g/dL (11.2-15.7); MCH 31.7 pg (27.0-33.0); MCHC 34.2 % (32.0-36.0); MCV 93 fL (80-95); Platelet Count 189 10^3/uL (130-400); RBC 4.92 10^6/uL (3.93-5.22); RDW-SD 41.4 fL; WBC 7.84 10^3/uL (4.4-10.8)
[2024-05-18 14:28] LABS: Anion Gap 6.4 mmol/L (3-11); BUN 12 mg/dL (7-18); CO2 27.6 mmol/L (21.0-32.0); CREATININE 0.8 mg/dL (0.55-1.02); Calcium 9.1 mg/dL (8.5-10.1); Chloride 105 mmol/L (98-107); Glucose 86 mg/dL (74-106); Potassium 4.7 mmol/L (3.5-5.1); Sodium 139 mmol/L (136-145)
[2024-05-18 14:40] LABS: Hemoglobin A1C 5.4 % (<5.7)
== END 2024-05-18 13:26 | disposition home or self-care (01) ==
LOC: NCHCN 13:25
PROVIDERS: PCP Family Medicine; Visit Provider Family Medicine
DX: Z00.00 Encounter for general adult medical examination without abnormal findings (principal)
CPT/HCPCS: 80048; 85027; 83036

== ENCOUNTER 2024-06-16 14:35 | Outpatient (REF) | payer BC, SELFPAY ==
[2024-06-16 21:52] LABS: Abs Immature Grans 0.03 10^3/uL (0.0-0.06); Absolute Basophil Count 0.08 10^3/uL (0.0-0.2); Absolute Lymphocyte Count 2.78 10^3/uL (1.2-3.4); Absolute Monocyte Count 0.55 10^3/uL (0.1-0.8); Absolute Neutrophil Count 4.42 10^3/uL (1.2-6.7); Eosinophils % 2.5 %; HCT 43.3 % (36.0-46.0); HGB 15.2 g/dL (11.2-15.7); Immature Grans % 0.4 %; Lymphocytes % 34.5 %; MCH 31.8 pg (27.0-33.0); MCHC 35.1 % (32.0-36.0); MCV 91 fL (80-95); Monocytes % 6.8 %; Neutrophils % 54.8 %; RBC 4.78 10^6/uL (3.93-5.22); RDW 11.6 % (11.7-14.6); RDW-SD 38.9 fL; WBC 8.06 10^3/uL (4.4-10.8)
[2024-06-16 22:23] LABS: Diff Comment PLT Morph Reviewed; RBC Morphology Normal
== END 2024-06-16 14:36 | disposition home or self-care (01) ==
LOC: NCHCN 14:35
PROVIDERS: Internal Medicine; PCP Family Medicine; Visit Provider Family Medicine
DX: R63.4 Abnormal weight loss (principal); D69.3 Immune thrombocytopenic purpura
CPT/HCPCS: 85025